=== PATIENT | female | born 1945 | race Caucasian/White ===

== ENCOUNTER 2020-10-13 09:26 | Outpatient (CLI) | payer MEDICARE, OTHER, SELFPAY ==
--- NOTE | 2020-10-13 09:41 | MR_ITS ---
WS: [id number] MRI LUMBAR SPINE NONCONTRAST HISTORY: SCIATICA/ HERNIATED LUMBAR DISC COMPARISON: 05/18/2017 TECHNIQUE: Sagittal and axial multisequence imaging is submitted. Degenerative disc disease and osteophytosis in the cervical spine with mild central stenosis at C5-6. Mild increase in the thoracic kyphosis. Increased in the lumbar lordosis. L2 retrolisthesis by 7.6 mm is new. Prior posterior fusion hardware extends from L4 to S1. Advancing degenerative disc disease since the prior study. Interbody spacers at L4-5 and L5-S1. Conus terminates normally at L1. L1-L2: Normal. L2-L3: L2 retrolisthesis with advancing facet joint arthritis. Extruded disc extends caudad to L3. Ex truded disc extends central and RIGHT lateral recess with a width of 11 mm. There is contact and defo rmity the ventral thecal sac and the nerve roots in the thecal sac. Marked bilateral facet joint arth ritis. Severe central and LEFT foraminal stenosis. Moderate RIGHT foraminal stenosis. L3-L4: Mild annular disc bulging and osteophytic ridging. Bilateral laminectomy defects. Facet joint arthritis and ligamentum flavum arthritis with mild progression since the prior study. Mild bilateral foraminal stenosis. Mild arachnoiditis. L4-L5: Large posterior laminectomy defects with fusion across the posterior laminectomy site. Clumpin g of the nerve roots in the thecal sac. No stenosis. L5-S1: Large posterior laminectomy defects with fusion posteriorly. Mild facet joint arthritis. Mild RIGHT foraminal stenosis due to facet arthritis and osteophytes. RIGHT renal cyst measures 2.6 cm. Aneurysmal dilatation of aorta 3.3 cm. Very slightly increased in s ize since the prior study. Moderate LEFT renal atrophy. MR/MR lumbar spine wo con* [id number] IMPRESSION: 1. Moderate progression of degenerative disc disease and facet joint arthritis since 05/18/2017. 2. Posterior lumbar fusion from L4 to S1 bilaterally with interbody spacers at L4-5 and L5-S1. 3. New L2 retrolisthesis by 7.6 mm with a new extruded disc at L2-3. Disc exte nds caudad to the L3 vertebral body. 4. New progression of severe central, LEFT foraminal stenosis and moderate RIG HT foraminal stenosis at L2-3. Extruded disc is contacting the RIGHT lateral th ecal sac extending into the lateral recess deforming the thecal sac. 5. Mild bilateral foraminal stenosis at L3-4 and mild arachnoiditis. 6. Stable moderate LEFT renal atrophy. 7. Mild aneurysmal dilatation abdominal aorta 3.3 cm. Minimal progression sinc e the prior study.
== END 2020-10-13 09:27 | disposition home or self-care (01) ==
PROVIDERS: Visit Provider Family Medicine
DX: M54.30 Sciatica, unspecified side (principal); M51.26 Other intervertebral disc displacement, lumbar region; I71.4 Abdominal aortic aneurysm, without rupture; N26.1 Atrophy of kidney (terminal); M43.27 Fusion of spine, lumbosacral region; M51.36 Other intervertebral disc degeneration, lumbar region
CPT/HCPCS: 72148

== ENCOUNTER → 2021-12-21 13:07 | Outpatient (BNVA) | payer OTHER, MEDICARE, SELFPAY | PROVIDERS: PCP Family Medicine; Visit Provider Family Medicine | DX: M54.9 Dorsalgia, unspecified (principal); G89.29 Other chronic pain; F32.A Depression, unspecified; E78.5 Hyperlipidemia, unspecified; I10 Essential (primary) hypertension | CPT/HCPCS: 80053; 80061; 84443 ==

== ENCOUNTER → 2022-09-07 10:54 | Outpatient (BNVA) | payer MEDICARE, SELFPAY | PROVIDERS: PCP Family Medicine; Visit Provider Family Medicine | DX: F32.A Depression, unspecified (principal); E78.5 Hyperlipidemia, unspecified; I10 Essential (primary) hypertension; G47.00 Insomnia, unspecified | CPT/HCPCS: 80053; 80061; 84443 ==

== ENCOUNTER → 2023-11-09 10:20 | Outpatient (BNVA) | payer MEDICARE, SELFPAY | PROVIDERS: PCP Family Medicine; Visit Provider Family Medicine | DX: I10 Essential (primary) hypertension (principal); E78.5 Hyperlipidemia, unspecified; F32.A Depression, unspecified; M54.9 Dorsalgia, unspecified; G89.29 Other chronic pain; E11.9 Type 2 diabetes mellitus without complications | CPT/HCPCS: 80053; 80061; 84443 ==

== ENCOUNTER → 2023-11-21 16:29 | Outpatient (BNVA) | payer MEDICARE, SELFPAY | PROVIDERS: PCP Family Medicine; Visit Provider Family Medicine | DX: J06.9 Acute upper respiratory infection, unspecified (principal) | CPT/HCPCS: 87426 ==

== ENCOUNTER 2024-03-01 12:17 | Inpatient (IN) | payer MEDICARE, SELFPAY ==
[2024-03-01] VITALS (11 sets, daily range): BP systolic 78–198; BP diastolic 40–86; PULSE 63–120; RESP 18–34; TEMP 36.5–36.9; O2SAT 91–98; BMI 25.6
--- NOTE | 2024-03-01 12:28 | XR_ITS ---
WS: [id number] Portable AP upright chest, 03/01/2024 Clinical Data: palpitations Comparison: Portable chest, 05/07/2018 Findings: No nodules, masses or effusions are seen. The heart is normal. The pulmonary vascularity is not increased. No pneumonia or pneumothorax is seen. The left cardiophrenic fat pad or cyst has not changed. The aortic arch and descending thoracic aorta show calcification and tortuosity. There are m onitor leads on the chest wall. XR/XR chest 1V portable [id number] Impression: Atherosclerosis.
--- NOTE | 2024-03-01 12:39 | ECG_ITS ---
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 Measurements Intervals [place] Rate: 120 P: 0 ME: 0 QRS: -5 QRSD: 96 T: 107 QT: 370 QTc: 524 Interpretive Statements Atrial fibrillation with RAPID VENTRICULAR RESPONSE LEFT VENTRICULAR HYPERTROPHY AND ST-T CHANGE [VOLTAGE CRITERIA PLUS ST/T ABNORMALITY] Compared to ECG 05/07/2018 19:58:35 Left ventricular hypertrophy now present ST (T wave) deviation now present Sinus rhythm no longer present First degree AV block no longer present Electronically Signed On 03-01-2024 18:14:49 DEPOSITING MACHINE OPERATOR by Fady Lozada M.D. [id number]
--- NOTE | 2024-03-01 12:41 | ED_ITS ---
HPI - Weakness 2 General: Chief complaint: Weakness Stated complaint: weakness Time Seen by Provider: 03/01/24 12:32 Source: patient Mode of arrival: ambulatory Limitations: no limitations History of Present Illness: 78-year-old female states that she was o ut shopping and started to feel weak and having some foggy headedness. States this started roughly 2 hours ago she denies any slurred speech or focal weakness she states she did felt lightheaded and extremely weak she had went to her PCPs office found to be in atrial flutter and having some hypotension patient is in what appears to likely be A-fib with RVR here. She denies any chest pain and she denies any shortness of breath denies headache. Denies any vomiting or diarrhea Associated symptoms: Denies chest pain, chills, fever(s), headache(s), nausea or vomiting Review of Systems 2 Const: Reports: fatigue and malaise; Denies: fever(s), chills, body aches or change in appetite ENMT: Denies: throat pain or dental pain Card: Denies: chest pain Resp: Denies: dyspnea GI: Denies: abdominal pain, nausea, vomiting or diarrhea Musc: Denies: neck pain or back pain Skin/Breast: Denies: rash Neuro: Denies: headache(s) PFSH ED 2 PFSH: Medical History Insomnia Chronic back pain Depression Hyperlipidemia Hypertension Social History Smoking and tobacco/nicotine status: unknown if used tobacco/nicotine Physical Exam 2 Const: COMMON NORMALS: patient oriented x3 HENMT: COMMON NORMALS: normocephalic and atraumatic HEAD & SCALP: n ormocephalic and atraumatic Eye: COMMON NORMALS: conjunctivae normal CONJUNCTIVA: Yes conjunctivae normal Neck/C-Spine: COMMON NORMALS: full ROM and supple Chest: COMMONS NORMALS: normal inspection of the chest Resp: COMMON NORMALS: normal respiratory effort, No retractions, No use of accessory muscles and clear to auscultation bilaterally AUSCULTATION: clear to auscultation bilaterally Cardio: COMMON NORMALS: No murmurs present (Cardio) RATE: tachycardic R HYTHM: abnormal rhythm irregularly irregular GI: INSPECTION: Yes normal to inspection Extremity: COMMON NORMALS: normal to inspection and full ROM Neuro: COMMON NORMALS: patient oriented x3, moves all extremities and no focal motor deficits Psych: COMMON NORMALS: mental status grossly normal, Normal thought process present and cooperative THOUGHT PROCESS: Normal thought process present Skin: COMMON NORMALS: no rashes or lesions noted and no wounds GENERAL SKIN EXAM: no rashes or lesions noted Course 2 Vital Signs: Vital signs: Vital Signs Temperature 97.7 F 03/01/24 12:25 Pulse Rate 112 H 03/01/24 12:59 Respiratory Rate 18 03/01/24 12:25 Blood Pressure 99/58 03/01/24 12:59 Pulse Oximetry 91 03/01/24 12:59 Oxygen Delivery Me thod Room Air 03/01/24 12:59 MDM - Weakness Medical Decision Making Patient presents here with atrial fib patient spontaneously converted here she feels much improved blood pressures improved as well I spoke to hospitalist will admit for observation. Medical Records I reviewed the patient's medical records. Lab Data I reviewed the patient's lab results. 03/01/24 13:00 03/01/24 13:00 Radiology Impressions Chest X-Ray 03/01/24 12:28 Impression: Atherosclerosis. Laboratory Results WBC 13.97 10^3/uL (3.29-11.43) H 03/01/24 13:00 RBC 3.38 10^6/uL (3.85-5.65) L 03/01/24 13:00 Hgb 11.00 g/dL (11.27-16.99) L 03/01/24 13:00 Hct 33.6 % (36-47) L 03/01/24 13:00 MCV 99.4 fl (85-98) H 03/01/24 13:00 MCH 32.5 pg (27-33) 03/01/24 13:00 MCHC 32.7 g/dL (30-55) 03/01/24 13:00 RDW 13.3 % (12.1-15.1) 03/01/24 13:00 Plt Count 357 10^3/cmm (157-399) 03/01/24 13:00 MPV 8.6 fL (7.4-10.4) 03/01/24 13:00 Neut % (Auto) 77.2 % 03/01/24 13:00 Lymph % (Auto) 14.7 % 03/01/24 13:00 [place] % (Auto) 5.3 % 03/01/24 13:00 Eos % (Auto) 1.1 % 03/01/24 13:00 Baso % (Auto) 0.5 % 03/01/24 13:00 Neut # (Auto) 10.78 10^3/uL (1.8-7.7) H 03/01/24 13:00 Lymph # (Auto) 2.1 10^3/uL (0.8-4.8) 03/01/24 13:00 [place] # (Auto) 0.7 10^3/uL (0.2-0.9) 03/01/24 13:00 Eos # (Auto) 0.2 10^3/uL (0.0-0.8) 03/01/24 13:00 Baso # (Auto) 0.1 10^3/uL (0.0-0.1) 03/01/24 13:00 Nucleated RBC % (auto) 0 % 03/01/24 13:00 Nucleated RBCs # 0.0 /100WBC 03/01/24 13:00 PT 14.90 SECONDS (12.1-14.9) 03/01/24 13:00 INR 1.09 (0.8-1.2) 03/01/24 13:00 Sodium 137 mmol/L (136-145) 03/01/24 13:00 Potassium 3.4 mmol/L (3.5-5.1) L 03/01/24 13:00 Chloride 100 mmol/L (98-107) 03/01/24 13:00 Carbon Dioxide 21 mmol/L (22-29) L 03/01/24 13:00 Anion Gap 19.4 (5-19) H 03/01/24 13:00 BUN 16 mg/dL (8-23) 03/01/24 13:00 Creatinine 1.4 mg/dL (0.5-0.9) H 03/01/24 13:00 GFR Calculation Not Reportable 03/01/24 13:00 Glucose 175 mg/dL (65-115) H 03/01/24 13:00 Calculated Osmolality 289 mOsm/kg (285-295) 03/01/24 13:00 Calcium 8.5 mg/dL (8.5-10.5) 03/01/24 13:00 Total Bilirubin 0.2 mg/dL (0.15-1.2) 03/01/24 13:00 AST 19 U/L (0-32) 03/01/24 13:00 ALT 56 U/L (0-33) H 03/01/24 13:00 Alkaline Phosphatase 141 U/L (35-105) H 03/01/24 13:00 Troponin T Baseline 54 ng/L (0-10) H 03/01/24 13:00 Total Protein 5.2 g/dL (6.6-8.7) L 03/01/24 13:00 Albumin 3.0 g/dL (3.5-5.2) L 03/01/24 13:00 Globulin 2.2 g/dL (1.3-4.6) 03/01/24 13:00 TSH 0.54 uIU/mL (0.27-4.20) 03/01/24 13:00 All radiology interpretation(s) finalized by discharge EKG Data EKG 1: I personally reviewed and interpreted this EKG as follows: EKG interpretation date: 03/01/24 EKG interpretation time: 12:39 Interpretation: afib rvr hr [address] elevation qrs 96 qtc 441 Discharge Plan Discharge Patient Disposition: Placed in Observation Clinical Impression: Atrial fibrillation Condition: Stable Prescriptions: No Action atorvastatin 10 mg tablet 10 mg PO DAILY Qty: 90 11RF losartan 100 mg tablet 100 mg PO DAILY Qty: 90 3RF gabapentin 100 mg capsule 100 mg PO TID Qty: 30 3RF clonazepam 1 mg tablet 1 mg PO BID Qty: 60 5RF ibuprofen 800 mg tablet 800 mg PO TID PRN (Reason: Pain) amitriptyline 25 mg tablet 75 mg PO QPM PRN (Reason: Sleep) Referrals: Syed Nesbitt MD [Primary Care Provider] - Coding Level of Care Code ED Plumbing Contractor for Chg Fwd Related Data Home Medications Medication Instructions Recorded Confirmed amitriptyline 25 mg tablet 75 mg PO QPM PRN Sleep 03/01/24 03/01/24 ibuprofen 800 mg tablet 800 mg PO TID PRN Pain 03/01/24 03/01/24 Previous Rx's Medication Instructions Recorded clonazepam 1 mg tablet 1 mg PO BID #60 tabs 11/09/23 atorvastatin 10 mg tablet 10 mg PO DAILY #90 tabs 02/20/24 gabapentin 100 mg capsule 100 mg PO TID #30 caps 02/20/24 losartan 100 mg tablet 100 mg PO DAILY #90 tabs 02/20/24 Allergies Allergy/AdvReac Type Severity Reaction Status Date / Time codeine Allergy Severe Unknown Verified 11/09/23 09:53 sulfamethoxazole Allergy Severe Unknown Verified 11/09/23 09:53 [From Bactrim] trimethoprim [From Bactrim] Allergy Severe Unknown Verified 11/09/23 09:53 carvedilol [From Coreg] Allergy Intermediate bradycardia Verified 11/09/23 09:53 escitalopram [From Lexapro] Allergy Intermediate headaches Verified 11/09/23 09:53 methylphenidate Allergy Mild side Verified 11/09/23 09:53 [From Ritalin] effects trazodone AdvReac Severe confusion Verified 11/09/23 09:53 atorvastatin AdvReac Intermediate myalgias Verified 11/09/23 09:53 cyclobenzaprine AdvReac Intermediate hallucinati Verified 11/09/23 09:53 [From Flexeril] ons levofloxacin [From Levaquin] AdvReac Intermediate hands felt Verified 11/09/23 09:53 on fire
--- NOTE | 2024-03-01 12:41 | CT_ITS ---
WS: [id number] CT HEAD NONCONTRAST HISTORY: weakness TECHNIQUE: Contiguous axial imaging performed through the brain. Bone and soft tissue windows. Sagitt al and coronal reformats reviewed. All CT scans at [facility] use at least one of these dose optimization techniques: automated exposure control; mA and/or kV adjustment per patient size (includ es targeted exams where dose is matched to clinical indication); or iterative reconstruction. DLP: 1082.60 mGy.cm COMPARISON: 05/07/2018 No acute intracranial hemorrhage, midline shift or mass effect. Mild atrophy and small vessel disease. No prior infarct. There are several small lacunar infarcts in the basal ganglia, greater on the LEFT. 1.4 cm calcified meningioma LEFT frontal region. Ventricles: Normal size with no hydrocephalus. Calcifications in the distal vertebral arteries and intracranial carotid arteries. Paranasal sinuses: As visualized are clear. Mastoid air cells: Well pneumatized. Calvarium and scalp: Skull is intact with no soft tissue edema or swelling. CT/CT head wo con* [id number] IMPRESSION: 1. No acute intracranial hemorrhage. 2. Stable noncontrast head CT. 3. Stable RIGHT frontal meningioma. 4. Mild atrophy and mild small vessel disease.
[2024-03-01] MEDS: amiodarone 150 MG/100 ML PREMIX 400 MG IV (12:57)
[2024-03-01 13:13] LABS: Basophils # 0.1 10^3/uL (0.0-0.1); Basophils % 0.5 %; Eosinophils # 0.2 10^3/uL (0.0-0.8); Eosinophils % 1.1 %; Hematocrit 33.6 % (36-47); Lymphocytes # 2.1 10^3/uL (0.8-4.8); Lymphocytes % 14.7 %; Mean Corpuscular HGB Conc 32.7 g/dL (30-55); Mean Corpuscular Hemoglobin 32.5 pg (27-33); Mean Corpuscular Volume 99.4 fl (85-98); Mean Platelet Volume 8.6 fL (7.4-10.4); Monocytes # 0.7 10^3/uL (0.2-0.9); Monocytes % 5.3 %; Neutrophils # 10.78 10^3/uL (1.8-7.7); Neutrophils % 77.2 %; Nucleated Red Blood Cells % 0 %; Platelet Count 357 10^3/cmm (157-399); Red Blood Count 3.38 10^6/uL (3.85-5.65); Red Cell Distribution Width 13.3 % (12.1-15.1); White Blood Count 13.97 10^3/uL (3.29-11.43)
--- NOTE | 2024-03-01 13:24 | ECG_ITS ---
[facility] Date: 2024[facility]01 Pat Name: Joycelyn Holden Department: Room: Gender: Female Manager Erp: : 1945 Requested By: Aranza Bonner Order Number: [id number] Sejal MD: Fady Lozada M.D. Measurements Intervals [place] Rate: 67 P: 48 MD: 193 QRS: 5 QRSD: 102 T: 85 QT: 418 QTc: 444 Interpretive Statements SINUS RHYTHM LEFT VENTRICULAR HYPERTROPHY AND ST-T CHANGE [VOLTAGE CRITERIA PLUS ST/T ABNORMALITY] POSSIBLE ANTERIOR MYOCARDIAL INFARCTION , OF INDETERMINATE AGE [30 ms Q WAVE IN V3/V4, OR R < 0.2 mV IN V4] Compared to ECG 03/01/2024 12:39:27 Myocardial infarct finding now present Atrial flutter no longer present ST (T wave) deviation still present Electronically Signed On 03-01-2024 18:23:20 STOCK SHIPPER by Fady Lozada M.D. [id number]
[2024-03-01 13:25] LABS: INR 1.09 (0.8-1.2)
[2024-03-01 13:29] LABS: Troponin(5th) Baseline 54 ng/L (0-10)
[2024-03-01 13:35] LABS: Alanine Aminotransferase 56 U/L (0-33); Alkaline Phosphatase 141 U/L (35-105); Anion Gap 19.4 (5-19); Aspartate Amino Transferase 19 U/L (0-32); Blood Urea Nitrogen 16 mg/dL (8-23); Calcium 8.5 mg/dL (8.5-10.5); Carbon Dioxide 21 mmol/L (22-29); Chloride 100 mmol/L (98-107); Creatinine Clr Calc Pharmacy 28.9961; Globulin 2.2 g/dL (1.3-4.6); Glucose 175 mg/dL (65-115); Osmolality Calculated 289 mOsm/kg (285-295); Potassium 3.4 mmol/L (3.5-5.1); Sodium 137 mmol/L (136-145); Total Bilirubin 0.2 mg/dL (0.15-1.2); Total Protein 5.2 g/dL (6.6-8.7)
--- NOTE | 2024-03-01 13:37 | PC.PHAR ---
Pt verified all current medications Most meds should be out, according to last fill dates. Gabapentin 100mg is most recently filled med form 02/20/24. Family member in the room says pt had problems taking this med in the past.
[2024-03-01 13:40] LABS: Thyroid Stimulating Hormone 0.54 uIU/mL (0.27-4.20)
--- NOTE | 2024-03-01 13:58 | PC.NURSE ---
AT APPROXIMATELY 1309 I WAS STARTING A 2ND IV ON PATIENT WHEN SHE STARTED SAYING SHE WAS NAUSEOUS. PATIENT WAS SPEAKING CLEARLY I WAS TIGHTENING JLOOP TO THE IV HUB. PATIENTS HEAD FELL BACKWARD AND SHE LET OUT A MOAN. PATIENT DID NOT RESPOND TO VERBAL STIMULI AND WAS IN ASYSTOLE ON TELECOMMUNICATIONS REPAIRER FOR APPROX 5 SECONDS. WHEN ASYSTOLE FIRST APPEARED, I IMMEDIATELY STOPPED AMIODARONE ON PUMP. I REPEATED THE PATIENTS NAME AND SHE IMMEDIATELY RESPONDED VERBALLY AND OPENED EYES. PATIENT SHOWED NORMAL SINUS RHYTHM ON MONITOR AT THAT TIME. PATIENT WAS ALERT AND ORIENTED. SHORTLY AFTER PATIENT RESPONDED, PHYSICIAN WALKED INTO ROOM TO ASSESS PATIENT. REPEAT EKG PERFORMED AND SHOWED NORMAL SINUS RHYTHM. 10 MINS LATER ANOTHER REPEAT EKG SHOWED NORMAL SINUS RHYTHM AT A RATE OF 66. PATIENT WAS A&OX4 WITH EQUAL NONLABORED RESPIRATIONS AT THIS TIME. DR. SILVA GAVE VERBAL ORDER TO D/C AMIODARONE. PULLED BACK ON PATIENT'S IV THAT CONTAINED AMIODARONE AND DISPOSED OF WASTE.
--- NOTE | 2024-03-01 14:28 | ECG_ITS ---
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 Measurements Intervals [place] Rate: 62 P: 34 FL: 193 QRS: -13 QRSD: 95 T: 105 QT: 415 QTc: 424 Interpretive Statements SINUS RHYTHM POSSIBLE LEFT ATRIAL ENLARGEMENT [-0.1mV P-WAVE IN V1/V2] LEFT VENTRICULAR HYPERTROPHY AND ST-T CHANGE [VOLTAGE CRITERIA PLUS ST/T ABNORMALITY] POSSIBLE ANTERIOR MYOCARDIAL INFARCTION , OF INDETERMINATE AGE [30 ms Q WAVE IN V3/V4, OR R < 0.2 mV IN V4] Compared to ECG 03/01/2024 12:39:27 Myocardial infarct finding now present Atrial flutter no longer present ST (T wave) deviation still present Electronically Signed On 03-01-2024 18:23:27 PERSONAL CARE HOME ADMINISTRATOR by Fady Lozada M.D. [id number]
[2024-03-01 15:49] LABS: Procalcitonin 0.13 ng/mL (0-0.5)
--- NOTE | 2024-03-01 15:59 | USCV_ITS ---
Joycelyn Holden Age: 78 Gender: F : 1945 Exam Date: 03/01/2024 16:41 Ordering Phys: Phillip Hester MD Technologist: [place] [facility] [place] afib BP: 137 / 90 HR: 65 Rhythm: Sinus Technical Quality: Adequate MEASUREMENTS (Male / Female) Normal Values 2D ECHO LVOT Diameter 2.0 cm LV Ejection Fraction MOD 4C 58.3 % LV Ejection Fraction MOD 2C 64.4 % LV Ejection Fraction 2C AL 64.5 % LA Diameter 3.6 cm RA Systolic Volume 4C AL 30.3 ml RA Systolic Volume 4C MOD 29.1 ml LA Sys Volume AL 65.2 cm cubed LA Sys Volume Index AL 38.8 cm cubed/m squared Aorta at Sinotubular Diameter 1.8 cm IVC Diameter 2.4 cm M-MODE LA Ao Ratio MM 1.4 AV Cusp Separation MM 1.9 cm DOPPLER AV Peak Velocity 175.0 cm/s LVOT Peak Velocity 83.0 cm/s AV Area Cont Eq vti 1.7 cm squared AV Area Cont Eq pk 1.5 cm squared MV Peak Velocity 124.0 cm/s MV Area PHT 4.5 cm squared Mitral E to A Ratio 2.0 TV Peak Velocity 302.5 cm/s TR Peak Velocity 311.5 cm/s TR Peak Gradient 38.8 mmHg TR Mean Velocity 212.0 cm/s TR Mean Gradient 21.2 mmHg TR Velocity Time Integral 77.6 cm TV Peak E Velocity 56.0 cm/s PV Peak Velocity 93.0 cm/s FINDINGS Left Ventricle Normal left ventricular size and systolic function, EF 64%. Moderate left ventricular hypertrophy. No regional wall motion abnormalities. Grade III/IV diastolic dysfunction (restrictive filling pattern), severely elevated filling pressures. Right Ventricle The right ventricle is normal in size and function. Right Atrium The right atrium is normal in size. Left Atrium Mildly increased left atrial size. Mitral Valve Thickened mitral valve. Mild mitral annular calcification. Aortic Valve Thickened aortic valve. Tricuspid Valve Structurally normal tricuspid valve without significant stenosis or regurgitation. Pulmonary artery systolic pressure is normal. Pulmonic Valve Mild to moderate pulmonary valve regurgitation. Pericardium Trivial pericardial effusion. Aorta Normal aortic annulus size. IVC Normal inferior vena cava. CONCLUSIONS Normal left ventricular size and systolic function, EF 64%. Moderate left ventricular hypertrophy. No regional wall motion abnormalities. Grade III/IV diastolic dysfunction (restrictive filling pattern), severely elevated filling pressures. Mildly increased left atrial size. Thickened mitral valve. Mild mitral annular calcification. Thickened aortic valve. Structurally normal tricuspid valve without significant stenosis or regurgitation. Pulmonary artery systolic pressure is normal. Mild to moderate pulmonary valve regurgitation. There are no intracardiac masses. Trivial pericardial effusion. Compared to the study from 06/24/2016, there is worsening of the diastolic dysfunction Dr Fady Lozada MD FAC (Electronically Signed) Final Date: 01 March 2024 19:32 S
[2024-03-01 16:15] LABS: Troponin 5 2HR 63.53 ng/L (0-10); Troponin 5 2HR Delta 9.53 ABS# (0-10)
[2024-03-01 17:03] LABS: Iron 23 ug/dL (37-145); Percent Saturation 14.1 % (20-50); Total Iron Binding Capacity 162 mcg/dl; Unsaturated Iron Binding 139 ug/dL (112-347); Vitamin B12 878 pg/mL (232-1245)
--- NOTE | 2024-03-01 17:15 | P.HP_ITS ---
Providers/Chief Complaint 2 Admitting Physician: Phillip Hester MD Primary Care Provider: Syed Nesbitt MD Chief Complaint: weakness History of Present Illness Joycelyn Holden is a 78 year old female with past medical history of hypertension, depression, insomnia, hyperlipidemia presents to the ER today from the PCPs office because of atrial fibrillation. For the patient he was at [employer] with a friend when she felt extremely weak and decided to go to the PCPs office where she was found to have atrial fibrillation. On presentation to the ER she was found to have heart rate of more than 150, atrial fibrillation with concerns for hypotension. She was started on amiodarone bolus along with IV fluid bolus. During the bolus while a second IV line was being placed she seemed to have a vagal episode after which she converted back into sinus rhythm. When she was in A-fib she was feeling weak, having difficulty in breathing with some chest heaviness. Right now when seen in [facility], patient is in sinus rhythm with a heart rate of mid 60s, daughter at bedside. She denies any active complaints. Denies any recent changes in medications other than being on oral prednisone and valacyclovir recently for possible sinus infection and cold sore around her lips. Review of Systems 2 General: Reports: 10 or more systems reviewed and unremarkable except in HPI and below Const: Denies: fever(s), chills, body aches, change in appetite, change in weight, malaise, night sweats, diaphoresis, change in sleep pattern, daytime sleepiness or snoring Eyes: Denies: change in vision, blurry vision, photophobia, eye discomfort or eye discharge ENMT: Denies: throat pain, enlarged tonsils, hoarseness, mouth pain, oral sores, dry mouth, tinnitus, nasal congestion or post nasal drip Card: Denies: chest pain, palpitations, irregular heart rhythm, edema, swelling of feet/ankles, lightheadedness, syncope, pre-syncope, dyspnea on exertion, orthopnea, leg pain with exertion or acrocyanosis Resp: Denies: dyspnea, productive cough, non-productive cough, wheezing, stridor, pain on inspiration, change in phlegm color, hemoptysis or chest congestion GI: Denies: abdominal pain, nausea, vomiting, hematemesis, coffee ground emesis, dysphagia, heartburn, diarrhea, constipation, bloating, GI cramping, change in bowel habits, pain on defecation, hematochezia or melena : Denies: flank pain, dysuria, urinary frequency, urinary urgency, urinary hesitancy, nocturia or hematuria Musc: Denies: neck pain, back pain, extremity pain, joint pain, joint swelling, joint redness, joint stiffness or limited range of motion Neuro: Denies: headache(s), numbness in extremities, weakness in extremities, sensory changes, lack of coordination, difficulty walking, frequent falls, dizziness, vertigo, confusion, Slurred speech present, difficulty communicating thoughts or seizure-like activity Psych: Denies: anxiety, depression, mood swings, panic attacks, hopelessness or irritability Endo: Denies: polyuria, polydipsia, tired all the time, cold intolerance, excessive sweating, flushing or heat intolerance Sven/Lymph: Denies: easy bruising or easy bleeding All/Imm: Denies: tongue swelling, facial swelling or acute wheezing Medications/Allergies Home Medications Medication Instructions Recorded Confirmed Last Taken Type clonazepam 1 mg tablet 1 mg PO BID #60 tabs 11/09/23 03/01/24 03/01/24 Rx atorvastatin 10 mg tablet 10 mg PO DAILY #90 tabs 02/20/24 03/01/24 03/01/24 Rx gabapentin 100 mg capsule 100 mg PO TID #30 caps 02/20/24 03/01/24 02/29/24 Rx losartan 100 mg tablet 100 mg PO DAILY #90 tabs 02/20/24 03/01/24 03/01/24 Rx amitriptyline 25 mg tablet 75 mg PO QPM PRN Sleep 03/01/24 03/01/24 02/29/24 History ibuprofen 800 mg tablet 800 mg PO TID PRN Pain 03/01/24 03/01/24 Unknown History Allergies Allergy/AdvReac Type Severity Reaction Status Date / Time codeine Allergy Severe Unknown Verified 11/09/23 09:53 sulfamethoxazole Allergy Severe Unknown Verified 11/09/23 09:53 [From Bactrim] trimethoprim [From Bactrim] Allergy Severe Unknown Verified 11/09/23 09:53 carvedilol [From Coreg] Allergy Intermediate bradycardia Verified 11/09/23 09:53 escitalopram [From Lexapro] Allergy Intermediate headaches Verified 11/09/23 09:53 methylphenidate Allergy Mild side Verified 11/09/23 09:53 [From Ritalin] effects trazodone AdvReac Severe confusion Verified 11/09/23 09:53 atorvastatin AdvReac Intermediate myalgias Verified 11/09/23 09:53 cyclobenzaprine AdvReac Intermediate hallucinati Verified 11/09/23 09:53 [From Flexeril] ons levofloxacin [From Levaquin] AdvReac Intermediate hands felt Verified 11/09/23 09:53 on fire PFSH Acute 2 PFSH: Medical History Insomnia Chronic back pain Depression Hyperlipidemia Hypertension Family History (Updated 03/01/24 @ 17:26 by Phillip Hester MD) Other CAD (coronary artery disease) Social History (Updated 03/01/24 @ 17:26 by Phillip Hester MD) Smoking and tobacco/nicotine status: current every day tobacco/nicotine user Alcohol intake: never Substance/Drug Use: never Caregiver/support person: Yes Lives independently: Yes Housing: House Current occupational status: retired Vitals/I&O/Wt Last Vital Signs Temp 97.7 F 03/01/24 12:25 Pulse 69 03/01/24 16:16 Resp 18 03/01/24 12:25 BP 181/86 03/01/24 16:16 Pulse Ox 95 03/01/24 16:16 O2 Del Method Room Air 03/01/24 16:49 03/01/24 03/01/24 03/01/24 06:59 14:59 22:59 Intake Total 86.667 / 86.667 0 / 86.667 Balance 86.667 / 86.667 0 / 86.667 Weight last 48 hrs Weight 73.573 kg Weight 63.503 kg Physical Exam 2 Narrative: General: No acute distress, AO x3 HEENT: PERRLA, pupils bilaterally equal and reactive Chest: Normal vesicular breath sounds, no added sounds, equal good air entry bilaterally CVS: S1-S2 regular, no murmurs, no tachycardia, no gallops, no rubs Abdomen: Soft, nontender, no organomegaly, bowel sounds present Neuro: No focal deficits, no facial deformity, AO x3, power 5/5 in all limbs Data 03/01/24 13:00 03/01/24 13:00 A&P Assessment and plan (1) Paroxysmal atrial fibrillation with RVR: Back in normal sinus rhythm now. Continue to monitor telemetry. TSH within normal limits. Check echocardiogram. Discussed in detail with the patient regarding possibility of need of anticoagulation for stroke prevention. Discussed about merits versus demerits of being on anticoagulation. Patient would like to think further before making a decision. Will follow-up with Joe Vas score after echocardiogram. (2) Elevated troponin: Baseline troponin delta elevated. Delta of 9 in 2 hours. Patient does have history of hypertension, is a chronic smoker, has family history of CAD. Check echocardiogram as above. Lexiscan stress test in AM. N.p.o. after midnight. Aspirin 325 mg one-time followed by 81 mg daily. Check A1c, lipid panel. Counseled patient detail regarding need for smoking cessation. (3) Hypertension: Goal blood pressure less than 140/90 mmHg. Continue with home dose of losartan. If needed with add amlodipine as per goal blood pressure. (4) Hypotension: Landry was in A-fib with RVR. Currently blood pressure stable. Continue to monitor. (5) Hyperlipidemia: Plan Full code Cardiac diet, n.p.o. after midnight Full dose Lovenox will be sufficient for DVT prophylaxis Famotidine for PUD prophylaxis Attestations 2 Medical Necessity Statement*: Requires admission under observation for management of paroxysmal A-fib with RVR, elevated troponin while CAD is ruled out Diagnoses Paroxysmal atrial fibrillation with RVR I48.0 Elevated troponin R79.89 Hypertension I10 Hypotension I95.9 Hyperlipidemia E78.5
--- NOTE | 2024-03-01 17:22 | ECG_ITS ---
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 Interpretive Statements Lung unchanged pre/post procedure; Intraprocedure shortess of breath; Symptoms resoled by discharge PROCEDURE: At the baseline, the EKG revealed normal sinus rhythm with a poor R wave progression. Nonspecific T wave changes in the high lateral leads.. The baseline heart was 70 bpm with a blood pressue of 161/99 mm of Hg Lexiscan was infused over a period of 20 seconds. A total of 0.4 milligrams of Lexiscan was infused. The stress phase was continued for a total of 5 minutes. Heart rate at the end of the stress phase was 79 bpm with a blood pressure 203/80 mm of Hg. The EKG at the peak infusion revealed no significant changes. Sestamibi was injected 20 seconds after the Lexiscan infusion. Heart rate at the end of the recovery phase was 77 bpm with a blood pressure of 180/78 mm of Hg. CONCLUSION: 1. No significant EKG changes with the LexiScan infusion 2. No LexiScan induced chest pain or cardiac arrhythmia 3. Normal blood pressure and heart rate response 4. Sestamibi/sestamibi perfusion scan pending; see separate report. Electronically Signed On 03-07-2024 21:16:15 [employer] by Fady Lozada M.D. [id number]
[2024-03-01] MEDS: potassium chloride ER 20 mEq Tablet 40 MEQ PO (17:31)
[2024-03-01] MEDS: famotidine 20 mg Tablet PO (17:31)
[2024-03-01] MEDS: aspirin 325 mg EC Tablet PO (17:31)
[2024-03-01] MEDS: CLONazepam 1 mg Tablet PO (17:31)
[2024-03-01] MEDS: enoxaparin 80 mg/0.8 mL Syringe 70 MG SUBCUT (17:31)
[2024-03-01 19:30] LABS: Troponin 5 6HR 66.85 ng/L (0-10)
[2024-03-01 19:32] LABS: Troponin 5 6HR Delta 12.85 ng/L (0-12)
[2024-03-01] MEDS: gabapentin 100 mg Capsule PO (20:22)
[2024-03-02] VITALS (16 sets, daily range): BP systolic 140–203; BP diastolic 58–92; PULSE 69–86; RESP 18–33; TEMP 36.5–37.2; O2SAT 89–98
[2024-03-02 02:46] LABS: Basophils # 0.1 10^3/uL (0.0-0.1); Basophils % 0.8 %; Eosinophils # 0.3 10^3/uL (0.0-0.8); Eosinophils % 2.1 %; Hematocrit 31.3 % (36-47); Lymphocytes # 3.1 10^3/uL (0.8-4.8); Lymphocytes % 26.2 %; Mean Corpuscular HGB Conc 32.6 g/dL (30-55); Mean Corpuscular Hemoglobin 32.5 pg (27-33); Mean Corpuscular Volume 99.7 fl (85-98); Mean Platelet Volume 8.8 fL (7.4-10.4); Neutrophils # 7.35 10^3/uL (1.8-7.7); Neutrophils % 61.3 %; Nucleated Red Blood Cells % 0 %; Platelet Count 330 10^3/cmm (157-399); Red Blood Count 3.14 10^6/uL (3.85-5.65); Red Cell Distribution Width 13.3 % (12.1-15.1); White Blood Count 11.98 10^3/uL (3.29-11.43)
[2024-03-02 03:08] LABS: Alanine Aminotransferase 46 U/L (0-33); Albumin Level 2.7 g/dL (3.5-5.2); Alkaline Phosphatase 135 U/L (35-105); Aspartate Amino Transferase 16 U/L (0-32); Blood Urea Nitrogen 15 mg/dL (8-23); Calcium 8.5 mg/dL (8.5-10.5); Carbon Dioxide 27 mmol/L (22-29); Chloride 103 mmol/L (98-107); Globulin 2.8 g/dL (1.3-4.6); Glucose 98 mg/dL (65-115); Magnesium 1.7 mg/dL (1.7-2.3); Osmolality Calculated 289 mOsm/kg (285-295); Phosphorus 3.5 mg/dL (2.5-4.5); Sodium 139 mmol/L (136-145); Total Bilirubin 0.2 mg/dL (0.15-1.2); Total Protein 5.5 g/dL (6.6-8.7)
[2024-03-02 03:10] LABS: Estmated Average Glucose 111; Hemoglobin A1C 5.5 % (4.0-6.0)
[2024-03-02 03:17] LABS: Procalcitonin 0.08 ng/mL (0-0.5)
[2024-03-02 03:21] LABS: Folate Level 13.6 ng/mL (4.8-37.3)
[2024-03-02 03:28] LABS: Chol HDL Ratio 4.36 mg/dL (0.0-4.40); Cholesterol 122 mg/dL (0-200); HDL Cholesterol 28 mg/dL (60-100); LDL Cholesterol Calculated 76 mg/dL (50-129); LDL HDL Ratio 2.71 RATIO (0.00-3.22); Triglycerides 92 mg/dL (0-150)
[2024-03-02] MEDS: enoxaparin 80 mg/0.8 mL Syringe 70 MG SUBCUT (05:16)
[2024-03-02] MEDS: regadenoson 0.4 Mg/5 ml Syringe IVP (07:15)
[2024-03-02 07:45] LABS: Bilirubin Urine Negative (Negative); Blood Urine Negative (Negative); Glucose Urine UA Negative (Normal); Ketones Urine Negative (Negative); Leukocyte Esterase Urine Negative (Negative); Nitrate Urine Negative (Negative); Protein Urine Negative (Negative); Urine Appearance Clear (CLEAR); Urine Color Yellow (Yellow); pH Urine 5.5 (5-7)
[2024-03-02 07:47] LABS: Add Urine Microscopic? YES; Bacteria Urine None Seen /hpf; Hyaline Casts Urine 4.11 /lpf; RBC Urine 0-2 /hpf (0-2); Squamous Epithelial Cell Urine 0-5 /hpf (0-5); WBC Urine 0-5 /hpf (0-5)
[2024-03-02] MEDS: losartan 50 mg Tablet 100 MG PO (08:57)
[2024-03-02] MEDS: amlodipine 10 mg Tablet PO (08:57)
[2024-03-02] MEDS: gabapentin 100 mg Capsule PO ×3 (08:58→20:01)
[2024-03-02] MEDS: CLONazepam 1 mg Tablet PO ×2 (08:58→17:06)
[2024-03-02] MEDS: aspirin 81 mg EC Tablet PO (08:58)
[2024-03-02] MEDS: famotidine 20 mg Tablet PO ×2 (08:58→17:05)
[2024-03-02] MEDS: atorvastatin 40 mg Tablet PO (08:58)
--- NOTE | 2024-03-02 09:55 | PC.NURSE ---
Patient's current BP 203/88. Dr Hester into see patient. Received verbal order for hydralazine 10mg IVP onetime now.
[2024-03-02] MEDS: hyDRALAzine 20 mg/mL INJ 1 mL 10 MG IVP ×2 (10:33→21:08)
[2024-03-02] MEDS: hyDRALAzine 25 mg Tablet PO ×2 (12:21→14:34)
--- NOTE | 2024-03-02 12:49 | P.PN_ITS ---
Subjective 2 Subjective: No acute events overnight. Had remained in normal sinus rhythm. Underwent cardiac stress test earlier in the morning today. Denies any nausea, vomiting, headache. Blood pressure slightly elevated. Vitals/I&O/Wt Last Vital Signs Temp 97.7 F 03/02/24 11:43 Pulse 75 03/02/24 11:43 Resp 23 H 03/02/24 11:43 BP 177/92 03/02/24 11:43 Pulse Ox 98 03/02/24 11:43 O2 Del Method Room Air 03/02/24 11:43 03/01/24 03/02/24 03/02/24 22:59 06:59 14:59 Intake Total 240 / 326.667 480 / 806.667 360 / 360 Output Total 1100 / 1100 Balance 240 / 326.667 -620 / -293.333 360 / 360 Weight last 48 hrs Weight 75.523 kg Weight 73.573 kg Weight 63.503 kg Physical Exam 2 Narrative: General: No acute distress, AO x3 HEENT: PERRLA, pupils bilaterally equal and reactive Chest: Normal vesicular breath sounds, no added sounds, equal good air entry bilaterally CVS: S1-S2 regular, no murmurs, no tachycardia, no gallops, no rubs Abdomen: Soft, nontender, no organomegaly, bowel sounds present Neuro: No focal deficits, no facial deformity, AO x3, power 5/5 in all limbs Data 03/02/24 02:33 03/02/24 02:33 A&P Assessment and plan (1) Paroxysmal atrial fibrillation with RVR: Back in normal sinus rhythm now. Continue to monitor telemetry. TSH within normal limits. Check echocardiogram. Discussed in detail with the patient regarding possibility of need of anticoagulation for stroke prevention. Discussed about merits versus demerits of being on anticoagulation. Again followed up with the patient regarding possible need for anticoagulation. She is agreeable and would want to be on anticoagulation for stroke prevention going forward. Will start on Eliquis 5 mg twice daily. (2) Elevated troponin: Denies any chest pain. Echocardiogram shows a normal EF without regional wall motion normality with grade 3 diastolic dysfunction, mild to moderate pulmonary valve regurgitation with a normal PASP. Appreciate cardiac stress test with the possibility of small area of reversibility in the basal inferior region. Discussed in detail with the patient. As patient does not have any active symptoms for now we will hold off any further workup. Will start patient on baby aspirin 81 mg daily. Appreciate A1c, lipid panel. Continue with atorvastatin 10 mg oral daily. Counseled patient detail regarding need for smoking cessation. (3) Hypertension: Goal blood pressure less than 140/90 mmHg. Blood pressure is elevated. Continue with home dose of losartan 100 mg oral daily, add amlodipine 10 mg oral daily. If needed will add hydralazine. IV Razan 10 mg every 6 hours as needed for systolic more than 160 mmHg. (4) Hypotension: Resolved. (5) Hyperlipidemia: (6) Positive cardiac stress test: Plan Full code Cardiac diet, Eliquis will be sufficient for DVT prophylaxis Famotidine for PUD prophylaxis Attestations 2 Medical Necessity Statement*: Requires further hospitalization for management of uncontrolled hypertension while antihypertensives are adjusted and patient initially admitted for A-fib with RVR, positive troponins with concern for positive stress test Diagnoses Paroxysmal atrial fibrillation with RVR I48.0 Elevated troponin R79.89 Hypertension I10 Hypotension I95.9 Hyperlipidemia E78.5 Positive cardiac stress test R94.39
--- NOTE | 2024-03-02 14:26 | PC.NURSE ---
took over pt care from RUPA Victoria.
--- NOTE | 2024-03-02 17:22 | NMCV_ITS ---
NM josemanuel perf SPECT r/s* [id number] Joycelyn Holden Age: 78 Gender: F : 1945 Exam Date: 03/02/2024 06:32 Ordering Phys: Phillip Hester MD Technologist: FREIDA Anglin Exam Location: [facility] Indications: CP STRESS TEST Please see separate stress test report in [facility] for full findings IMAGE PROTOCOL Rest/Stress 1 Lexiscan Day Radiopharmaceutical Dose (mCi) Administration Site Administered by Rest: Tc-99m 10.6 IV FREIDA Anglin Sestamibi Stress:Tc-99m 32.8 IV FREIDA Anglin Sestamibi Rest: 02-Mar-2024 60 Discovery 630 Stress: 02-Mar-2024 30 Discovery 630 0.4mg Lexiscan. Supine position only as patient was unable to lay prone. SPECT RESULTS Technical Quality: Good Raw Data Analysis: Normal Image Corrections: No attenuation or motion correction applied Summed Stress Score: 1 Summed Rest Score: 3 Summed Difference Score: 1 PERFUSION FINDINGS There was a small area of slightly decreased tracer uptake in the basal inferior wall region, with some reversibility FUNCTIONAL RESULTS (calculated via Gated SPECT) Stress Image LV EF (%): 66 Stress EDV (mL):87 TID: 0.96 Stress ESV (mL):30 FUNCTIONAL FINDINGS: Segmental wall motion analysis revealing no gross wall motion abnormalities IMPRESSIONS 1. Myocardial perfusion imaging revealing a small area of slight reversibility in the basal inferior wall region, suggestive of ischemia in the distribution of the right coronary artery (the summed difference score of 1) 2. Normal LV ejection fraction of 66%. 3. LV wall motion analysis revealing no gross wall motion abnormalities. 4. LV volume within normal limits No similar previous studies are available for comparison Dr Fady Lozada MD [facility] (Electronically Signed) Final Date: 02 March 2024 08:35 S
[2024-03-02] MEDS: apixaban 5 mg Tablet PO (20:01)
[2024-03-02] MEDS: hyDRALAzine 50 mg Tablet PO (20:01)
[2024-03-03] VITALS: BP 149/66
[2024-03-03 02:21] LABS: Basophils # 0.1 10^3/uL (0.0-0.1); Basophils % 0.4 %; Eosinophils # 0.2 10^3/uL (0.0-0.8); Eosinophils % 1.4 %; Hematocrit 33.8 % (36-47); Lymphocytes # 1.8 10^3/uL (0.8-4.8); Lymphocytes % 14.1 %; Mean Corpuscular HGB Conc 33.1 g/dL (30-55); Mean Corpuscular Hemoglobin 32.5 pg (27-33); Mean Platelet Volume 8.8 fL (7.4-10.4); Monocytes # 0.9 10^3/uL (0.2-0.9); Monocytes % 7.3 %; Neutrophils # 9.67 10^3/uL (1.8-7.7); Neutrophils % 75.5 %; Nucleated Red Blood Cells % 0 %; Platelet Count 379 10^3/cmm (157-399); Red Blood Count 3.45 10^6/uL (3.85-5.65); Red Cell Distribution Width 13.4 % (12.1-15.1)
[2024-03-03 02:47] LABS: Alanine Aminotransferase 37 U/L (0-33); Alkaline Phosphatase 142 U/L (35-105); Anion Gap 15.2 (5-19); Aspartate Amino Transferase 13 U/L (0-32); Blood Urea Nitrogen 15 mg/dL (8-23); Calcium 8.8 mg/dL (8.5-10.5); Carbon Dioxide 28 mmol/L (22-29); Chloride 102 mmol/L (98-107); Creatinine Clr Calc Pharmacy 40.1034; Globulin 2.8 g/dL (1.3-4.6); Glucose 135 mg/dL (65-115); Osmolality Calculated 295 mOsm/kg (285-295); Potassium 4.2 mmol/L (3.5-5.1); Sodium 141 mmol/L (136-145); Total Bilirubin 0.2 mg/dL (0.15-1.2); Total Protein 5.8 g/dL (6.6-8.7)
[2024-03-03 03:47] VITALS: BP 158/72; PULSE 82; RESP 20; TEMP 37.1; O2SAT 96
[2024-03-03 05:15] VITALS: PULSE 80
[2024-03-03 08:43] VITALS: BP 143/67
[2024-03-03] MEDS: apixaban 5 mg Tablet PO (08:43)
[2024-03-03] MEDS: gabapentin 100 mg Capsule PO (08:43)
[2024-03-03] MEDS: CLONazepam 1 mg Tablet PO (08:43)
[2024-03-03] MEDS: hyDRALAzine 50 mg Tablet PO (08:43)
[2024-03-03] MEDS: losartan 50 mg Tablet 100 MG PO (08:43)
[2024-03-03] MEDS: amlodipine 10 mg Tablet PO (08:43)
[2024-03-03] MEDS: aspirin 81 mg EC Tablet PO (08:44)
[2024-03-03] MEDS: atorvastatin 40 mg Tablet PO (08:44)
[2024-03-03] MEDS: famotidine 20 mg Tablet PO (08:44)
[2024-03-03 09:36] VITALS: BP 143/67; PULSE 73; RESP 17; TEMP 37.1; O2SAT 93
--- NOTE | 2024-03-03 09:47 | P.DS_ITS ---
Discharge Providers Date of Admission: 03/02/24 15:33 Date of Discharge: March 03, 2024 Attending Provider at Admission: Phillip Hester MD Attending Provider at Discharge: Phillip Hester MD Primary Care Provider: Syed Nesbitt MD Diagnoses at Discharge Discharge Diagnosis (1) Paroxysmal atrial fibrillation with RVR: Status: Acute (2) Elevated troponin: Status: Acute (3) Hypertension: Status: Acute (4) Hypotension: Status: Acute (5) Hyperlipidemia: Status: Acute (6) Positive cardiac stress test: Status: Acute Reason for Visit Reason for Visit: weakness Hospital Course Hospital Course Joycelyn Holden is a 78 year old female with past medical history of hypertension, depression, insomnia, hyperlipidemia presents to the ER today from the PCPs office because of atrial fibrillation. For the patient he was at [employer] with a friend when she felt extremely weak and decided to go to the PCPs office where she was found to have atrial fibrillation. On presentation to the ER she was found to have heart rate of more than 150, atrial fibrillation with concerns for hypotension. She was started on amiodarone bolus along with IV fluid bolus. During the bolus while a second IV line was being placed she seemed to have a vagal episode after which she converted back into sinus rhythm. When she was in A-fib she was feeling weak, having difficulty in breathing with some chest heaviness. Right now when seen in [facility], patient is in sinus rhythm with a heart rate of mid 60s, daughter at bedside. She denies any active complaints. Denies any recent changes in medications other than being on oral prednisone and valacyclovir recently for possible sinus infection and cold sore around her lips. Patient was admitted to the hospital further evaluation and management of paroxysmal A-fib with concerns for chest pressure. Her troponin cycle trended positive. She did not have any active chest pain. During hospitalization patient remained in normal sinus rhythm. She underwent Lexiscan stress test on 03/02 which was concerning for a possibility of slight reversibility in the basal inferior region. As patient did not have any active chest pain decision was made to follow-up as an outpatient with cardiology if and when needed. During hospitalization she was found to have elevated blood pressures for which her antihypertensives are adjusted. During hospitalization discussions were done regarding possible need of starting anticoagulation given concerns for paroxysmal A-fib. Merits versus demerits were discussed in detail with the patient and she verbalized understanding wants to start on anticoagulation. She was started on Eliquis 5 mg twice daily. Echocardiogram was done which showed a normal EF with grade 3 diastolic dysfunction and mild to moderate pulmonary valve regurgitation. She has been discharged in hemodynamically stable condition with advised to follow-up with primary team within next 2 weeks for further adjustment of antihypertensive as needed Physical Exam Narrative: General: No acute distress, AO x3 HEENT: PERRLA, pupils bilaterally equal and reactive Chest: Normal vesicular breath sounds, no added sounds, equal good air entry bilaterally CVS: S1-S2 regular, no murmurs, no tachycardia, no gallops, no rubs Abdomen: Soft, nontender, no organomegaly, bowel sounds present Neuro: No focal deficits, no facial deformity, AO x3, power 5/5 in all limbs Discharge Data Studies Completed and Pending Completed Studies During Hospitalization Category Date Time Status CT head wo con* [id number] Stat Cat Scan 03/01/24 12:41 Completed XR chest 1V portable [id number] Stat Exams 03/01/24 12:28 Completed NM josemanuel perf SPECT r/s* [id number] Routine Nuc Med 03/02/24 17:22 Completed CV. echo complete* [id number] Routine Ultrasound 03/01/24 15:59 Completed Pending at discharge Category Date Time Status Sestamibi Stress Test Request Routine Exams 03/01/24 17:22 Ordered Radiology Impressions Chest X-Ray 03/01/24 12:28 Impression: Atherosclerosis. Head CT 03/01/24 12:41 IMPRESSION: 1. No acute intracranial hemorrhage. 2. Stable noncontrast head CT. 3. Stable RIGHT frontal meningioma. 4. Mild atrophy and mild small vessel disease. Echocardiogram: CONCLUSIONS Normal left ventricular size and systolic function, EF 64%. Moderate left ventricular hypertrophy. No regional wall motion abnormalities. Grade III/IV diastolic dysfunction (restrictive filling pattern), severely elevated filling pressures. Mildly increased left atrial size. Thickened mitral valve. Mild mitral annular calcification. Thickened aortic valve. Structurally normal tricuspid valve without significant stenosis or regurgitation. Pulmonary artery systolic pressure is normal. Mild to moderate pulmonary valve regurgitation. There are no intracardiac masses. Trivial pericardial effusion. Compared to the study from 06/24/2016, there is worsening of the diastolic dysfunction Dr Fady Lozada MD [facility] (Electronically Signed) Final Date: 01 March 2024 19:32 Lexiscan stress test: PERFUSION FINDINGS There was a small area of slightly decreased tracer uptake in the basal inferior wall region, with some reversibility FUNCTIONAL RESULTS (calculated via Gated SPECT) Stress Image LV EF (%): 66 Stress EDV (mL):87 TID: 0.96 Stress ESV (mL):30 FUNCTIONAL FINDINGS: Segmental wall motion analysis revealing no gross wall motion abnormalities IMPRESSIONS 1. Myocardial perfusion imaging revealing a small area of slight reversibility in the basal inferior wall region, suggestive of ischemia in the distribution of the right coronary artery (the summed difference score of 1) 2. Normal LV ejection fraction of 66%. 3. LV wall motion analysis revealing no gross wall motion abnormalities. 4. LV volume within normal limits No similar previous studies are available for comparison Dr Fady Lozada MD [facility] (Electronically Signed) Final Date: 02 March 2024 08:35 Laboratory Results WBC 12.80 10^3/uL (3.29-11.43) H 03/03/24 01:45 RBC 3.45 10^6/uL (3.85-5.65) L 03/03/24 01:45 Hgb 11.20 g/dL (11.27-16.99) L 03/03/24 01:45 Hct 33.8 % (36-47) L 03/03/24 01:45 MCV 98.0 fl (85-98) 03/03/24 01:45 MCH 32.5 pg (27-33) 03/03/24 01:45 MCHC 33.1 g/dL (30-55) 03/03/24 01:45 RDW 13.4 % (12.1-15.1) 03/03/24 01:45 Plt Count 379 10^3/cmm (157-399) 03/03/24 01:45 MPV 8.8 fL (7.4-10.4) 03/03/24 01:45 Neut % (Auto) 75.5 % 03/03/24 01:45 Lymph % (Auto) 14.1 % 03/03/24 01:45 Trego % (Auto) 7.3 % 03/03/24 01:45 Eos % (Auto) 1.4 % 03/03/24 01:45 Baso % (Auto) 0.4 % 03/03/24 01:45 Neut # (Auto) 9.67 10^3/uL (1.8-7.7) H 03/03/24 01:45 Lymph # (Auto) 1.8 10^3/uL (0.8-4.8) 03/03/24 01:45 Trego # (Auto) 0.9 10^3/uL (0.2-0.9) 03/03/24 01:45 Eos # (Auto) 0.2 10^3/uL (0.0-0.8) 03/03/24 01:45 Baso # (Auto) 0.1 10^3/uL (0.0-0.1) 03/03/24 01:45 Nucleated RBC % (auto) 0 % 03/03/24 01:45 Nucleated RBCs # 0.0 /100WBC 03/03/24 01:45 PT 14.90 SECONDS (12.1-14.9) 03/01/24 13:00 INR 1.09 (0.8-1.2) 03/01/24 13:00 Sodium 141 mmol/L (136-145) 03/03/24 01:45 Potassium 4.2 mmol/L (3.5-5.1) 03/03/24 01:45 Chloride 102 mmol/L (98-107) 03/03/24 01:45 Carbon Dioxide 28 mmol/L (22-29) 03/03/24 01:45 Anion Gap 15.2 (5-19) 03/03/24 01:45 BUN 15 mg/dL (8-23) 03/03/24 01:45 Creatinine 1.1 mg/dL (0.5-0.9) H 03/03/24 01:45 GFR Calculation Not Reportable 03/03/24 01:45 Glucose 135 mg/dL (65-115) H 03/03/24 01:45 Estimat Average Glucose 111 03/02/24 02:33 Hemoglobin A1c 5.5 % (4.0-6.0) 03/02/24 02:33 Calculated Osmolality 295 mOsm/kg (285-295) 03/03/24 01:45 Calcium 8.8 mg/dL (8.5-10.5) 03/03/24 01:45 Phosphorus 3.5 mg/dL (2.5-4.5) 03/02/24 02:33 Magnesium 1.7 mg/dL (1.7-2.3) 03/02/24 02:33 Iron 23 ug/dL (37-145) L 03/01/24 13:00 TIBC 162 mcg/dl 03/01/24 13:00 % Saturation 14.1 % (20-50) L 03/01/24 13:00 Unsat Iron Binding 139 ug/dL (112-347) 03/01/24 13:00 Total Bilirubin 0.2 mg/dL (0.15-1.2) 03/03/24 01:45 AST 13 U/L (0-32) 03/03/24 01:45 ALT 37 U/L (0-33) H 03/03/24 01:45 Alkaline Phosphatase 142 U/L (35-105) H 03/03/24 01:45 Troponin T Baseline 54 ng/L (0-10) H 03/01/24 13:00 Troponin T 120 Minute 63.53 ng/L (0-10) H 03/01/24 15:27 Delta Troponin T 9.53 ABS# (0-10) 03/01/24 15:27 Troponin T Hi Sens 6Hr 66.85 ng/L (0-10) H 03/01/24 19:07 Troponin T Hi Sens 6Hr Delta 12.85 ng/L (0-12) H* 03/01/24 19:07 Total Protein 5.8 g/dL (6.6-8.7) L 03/03/24 01:45 Albumin 3.0 g/dL (3.5-5.2) L 03/03/24 01:45 Globulin 2.8 g/dL (1.3-4.6) 03/03/24 01:45 Triglycerides 92 mg/dL (0-150) 03/02/24 02:33 Cholesterol 122 mg/dL (0-200) 03/02/24 02:33 LDL Cholesterol, Calc 76 mg/dL (50-129) 03/02/24 02:33 HDL Cholesterol 28 mg/dL (60-100) L 03/02/24 02:33 LDL/HDL Ratio 2.71 RATIO (0.00-3.22) 03/02/24 02:33 Cholesterol/HDL Ratio 4.36 mg/dL (0.0-4.40) 03/02/24 02:33 Vitamin B12 878 pg/mL (232-1245) 03/01/24 13:00 Folate 13.6 ng/mL (4.8-37.3) 03/02/24 02:33 Procalcitonin 0.08 ng/mL (0-0.5) 03/02/24 02:33 TSH 0.54 uIU/mL (0.27-4.20) 03/01/24 13:00 Urine Color Yellow (Yellow) 03/02/24 05:20 Urine Appearance Clear (CLEAR) 03/02/24 05:20 Urine pH 5.5 (5-7) 03/02/24 05:20 Ur Specific Kennard 1.010 (1.005-1.030) 03/02/24 05:20 Urine Protein Negative (Negative) 03/02/24 05:20 Urine Glucose (UA) Negative (Normal) 03/02/24 05:20 Urine Ketones Negative (Negative) 03/02/24 05:20 Urine Blood Negative (Negative) 03/02/24 05:20 Urine Nitrate Negative (Negative) 03/02/24 05:20 Urine Bilirubin Negative (Negative) 03/02/24 05:20 Urine Urobilinogen 1.0 mg/dL (Negative) 03/02/24 05:20 Ur Leukocyte Esterase Negative (Negative) 03/02/24 05:20 Urine RBC 0-2 /hpf (0-2) 03/02/24 05:20 Urine WBC 0-5 /hpf (0-5) 03/02/24 05:20 Ur Squamous Epith Cells 0-5 /hpf (0-5) 03/02/24 05:20 Amorphous Sediment Not Reportable 03/02/24 05:20 Urine Bacteria None seen /hpf (NONE) 03/02/24 05:20 Hyaline Casts 4.11 /lpf 03/02/24 05:20 Vitals Last Vital Signs Temp 98.7 F 03/03/24 09:36 Pulse 73 03/03/24 09:36 Resp 17 03/03/24 09:36 BP 143/67 03/03/24 09:36 Pulse Ox 93 03/03/24 09:36 O2 Del Method Room Air 03/03/24 03:47 Discharge Plan Discharge Patient Disposition: Home Condition: Stable Prescriptions: New famotidine 20 mg Tablet 20 mg PO BID 30 Days Qty: 60 0RF amlodipine 10 mg Tablet 10 mg PO DAILY Qty: 30 0RF hydralazine 50 mg Tablet 50 mg PO TID 30 Days Qty: 90 0RF Eliquis 5 mg Tablet 5 mg PO BID@0900,2100 Qty: 60 0RF Continued atorvastatin 10 mg tablet 10 mg PO DAILY Qty: 90 11RF losartan 100 mg tablet 100 mg PO DAILY Qty: 90 3RF gabapentin 100 mg capsule 100 mg PO TID Qty: 30 3RF clonazepam 1 mg tablet 1 mg PO BID Qty: 60 5RF amitriptyline 25 mg tablet 75 mg PO QPM PRN (Reason: Sleep) Discontinued ibuprofen 800 mg tablet 800 mg PO TID PRN (Reason: Pain) Discharge Orders: Discharge Order (Routine); Ordered 03/03/24 Ordered By: Phillip Hester Referrals: Syed Nesbitt MD [Primary Care Provider] - 2 weeks (We have notified your physician's clinic of the need for a follow-up appointment to be scheduled. If you have not heard from them within the next 2 business days, please call them directly. ) Discharge Diet: Cardiac Discharge Activity: Resume usual activity and Increase activity as tolerated Patient Instructions: Atrial Fibrillation, Famotidine (By mouth), Hydralazine (By mouth), Amlodipine (By mouth), Apixaban (By mouth), Chronic Hypertension (DC), Cardiac Stress Test (GEN), Opioid Safety Activity Restrictions/Additional Instructions: Goal pressure less than 140/90 mmHg. Amlodipine once daily and hydralazine 3 times a day has been added to your medication list. Please check your blood pressure daily at home and maintain a blood pressure diary and follow-up with a primary care provider within next 2 weeks for further adjustment of antihypertensive as needed. Eliquis is a blood thinner which she should take twice daily. Try to avoid using Motrin as much as possible. Try to quit smoking. If you have concerns about chest discomfort or chest pain on exertion please follow-up with the primary care provider for a referral for professional organizer. Discharge Attestations Time Spent in Discharge Care*: greater than 30 min Specific Discharge Activities: educating patient, educating and/or supporting family/caregiver, discussing with pcp/other providers, discussing with casework manager/social workers/dc planners, documenting/other paperwork and evaluating patient/reviewing data Status at Discharge: Cognitive status at discharge: cognitively intact , Behavioral status at discharge: cooperative , Functional status at discharge: independent ambulation , Overall status at discharge: patient is back to baseline Quality Metrics Clinical Quality Measures [ No reported AMI, CVA or VTE this stay] Coding Level of Care Code 48084 Total time (in minutes) for Discharge: 56 Diagnoses Paroxysmal atrial fibrillation with RVR I48.0 Elevated troponin R79.89 Hypertension I10 Hypotension I95.9 Hyperlipidemia E78.5 Positive cardiac stress test R94.39
[2024-03-03 11:28] VITALS: BP 143/72; PULSE 65; RESP 18; TEMP 37; O2SAT 96
--- NOTE | 2024-03-03 11:28 | PC.NURSE ---
Discharge Note Patient discharged to home via POV accompanied by daughter. Discharge instructions reviewed with patient and/or technical account representative. Mobile pharmacy medications and/or prescriptions provided. Belongings/home medications returned.
== END 2024-03-03 11:29 | disposition home or self-care (01) | DRG 310 ==
LOC: ER 14:02 → CSU 15:46
PROVIDERS: Admitting Provider Student in an Organized Health Care Education/Training Program; Emergency Provider Emergency Medicine; PCP Family Medicine; Visit Provider Student in an Organized Health Care Education/Training Program
DX: I48.0 Paroxysmal atrial fibrillation (principal); R79.89 Other specified abnormal findings of blood chemistry; I10 Essential (primary) hypertension; I95.9 Hypotension, unspecified; E78.5 Hyperlipidemia, unspecified; F32.A Depression, unspecified; G47.00 Insomnia, unspecified; F17.200 Nicotine dependence, unspecified, uncomplicated
CPT/HCPCS: 36415; 70450; 71045; 78452; 80053; 80061; 81001; 82607; 82746; 83036; 83540; 83550; 83735; 84100; 84145; 84443; 84484; 85025; 85610; 87426; 93005; 93017; 93306; 94664; 96365; 96366; 96372; 96375; 99285; A9270; A9500; G0378; J0283; J0360; J1650; J2785

== ENCOUNTER → 2024-10-02 09:05 | Outpatient (BNVA) | payer MEDICARE, SELFPAY | PROVIDERS: PCP Family Medicine; Visit Provider Family Medicine | DX: I10 Essential (primary) hypertension (principal); F32.A Depression, unspecified; I48.91 Unspecified atrial fibrillation; M54.9 Dorsalgia, unspecified; G89.29 Other chronic pain | CPT/HCPCS: 80053; 82306; 82607; 83540; 84443; 85025; 85651; 86140 ==

== ENCOUNTER 2024-11-26 08:05 | Outpatient (CLI) | payer MEDICARE, SELFPAY ==
--- NOTE | 2024-11-26 08:45 | MR_ITS ---
WS: [id number] MRI LUMBAR SPINE NONCONTRAST HISTORY: worsening back pain, prior surgery. COMPARISON: 10/13/2020 TECHNIQUE: Sagittal and axial multisequence imaging is submitted. Cervical disc protrusions at C4-5 and C5-6 with mild contact on the cervical cord. Increased signal of the cervical cord at C5-6. Mild increase in thoracic kyphosis. Increase in lumbar lordosis. L2 retrolisthesis by 5.3 mm. Posterior lumbar fusion hardware extends from L3-S1. Extension of the fusion hardware since 2020 to now include L3. No acute fracture. The course of the new fusion at the L2-3 level is difficult to determine due to the artifact. Disc desiccation throughout the lumbar spine. Postsurgical fluid collection at the L5-S1 level similar to the prior study. May be postoperative collection. There is been no increase in size and it is slightly loculated. Conus terminates normally at L1-2 disc level. L1-L2: Mild annular disc bulge and osteophytic ridging. Moderate bilateral facet joint arthritis. No high-grade stenosis. L2-L3: Retrolisthesis of L2. Large posterior laminectomy defect. Artifact from the hardware extends through the L2-3 pedicles. There is deformity of the thecal sac. Moderate central, subarticular recess and moderate to severe bilateral foraminal stenosis. L3-L4: Diffuse mild osteophytic ridging. Advanced bilateral facet joint arthritis. Large posterior laminectomy defect. Narrowing of the thecal sac is slightly progressed since 2020. Mild central, subarticular recess with moderate bilateral foraminal stenosis, RIGHT greater than LEFT. L4-L5: Diffuse osteophytic ridging with bilateral facet joint arthritis. Posterior laminectomy defect. No central stenosis. Mild bilateral foraminal stenosis. L5-S1: Large posterior laminectomy defect. Mild foraminal stenosis. Bilateral renal cysts. Extrarenal pelvis on the RIGHT. No calyceal dilatation. Moderate, unchanged LEFT renal atrophy. Dilated aorta consistent with a mild aneurysm to 3.1 cm. MR/MR lumbar spine wo con* [id number] IMPRESSION: 1. Posterior lumbar spine surgery extends from L3-S1. Large posterior laminect rissa defects. 2. L2 retrolisthesis by 5.3 mm. 3. L2-3: Retrolisthesis of L2 with large laminectomy defect. Artifact from the posterior fusion hardware closely associated with the L2-3 foramina. There is mild narrowing of the thecal sac. Mild central, subarticular recess with modera te to severe bilateral foraminal stenosis. 4. Moderate bilateral foraminal stenosis, RIGHT greater than LEFT at L3-4. Mil d central and subarticular recess stenosis. 5. Mild foraminal stenosis at L4-5 and L5-S1. 6. Stable moderate LEFT renal atrophy. 7. Small aortic aneurysm unchanged.
== END 2024-11-26 08:06 | disposition home or self-care (01) ==
LOC: RAD 08:06
PROVIDERS: PCP Family Medicine; Visit Provider Family Medicine
DX: M48.061 Spinal stenosis, lumbar region without neurogenic claudication (principal); M50.321 Other cervical disc degeneration at C4-C5 level; M50.322 Other cervical disc degeneration at C5-C6 level; M47.816 Spondylosis without myelopathy or radiculopathy, lumbar region; Q61.02 Congenital multiple renal cysts; N26.1 Atrophy of kidney (terminal); I71.9 Aortic aneurysm of unspecified site, without rupture
CPT/HCPCS: 72148

== ENCOUNTER 2025-01-06 06:21 | Inpatient (IN) | payer MEDICARE, SELFPAY ==
[2025-01-06] VITALS (9 sets, daily range): BP systolic 119–206; BP diastolic 55–74; PULSE 70–86; RESP 15–18; TEMP 36.5–37.3; O2SAT 84–98; BMI 26.0; BMI 25.0
--- NOTE | 2025-01-06 06:50 | CTR_ITS ---
PROCEDURE INFORMATION: Exam: CT Abdomen And Pelvis With Contrast Exam date and time: 01/06/2025 8:28 AM Age: 79 years old Clinical indication: Abdominal tenderness and vomiting; Abdominal pain; Generalized; Prior surgery; Surgery date: 6+ months; Surgery type: Gb, lumbar TECHNIQUE: Imaging protocol: Computed tomography of the abdomen and pelvis with contrast. Radiation optimization: All CT scans at this facility use at least one of these dose optimization techniques: automated exposure control; mA and/or kV adjustment per patient size (includes targeted exams where dose is matched to clinical indication); or iterative reconstruction. Contrast material: OMNIPAQUE 350; Contrast volume: 100 ml; Contrast route: INTRAVENOUS (IV); COMPARISON: MR lumbar spine wo con* [id number] 11/26/2024 9:04 AM RADIATION DOSE METRICS: Total DLP (mGy-cm): 592.22 FINDINGS: Lungs: Mild basilar atelectasis. There are a few scattered pulmonary nodules in the lung bases measuring less than 6 mm. Coronary arteries: Severe atherosclerotic calcification of the coronary arteries. Liver: Lesion measuring 3.3 x 2.8 cm in the right hepatic lobe which demonstrates heterogeneous internal enhancement. This is incompletely characterized on this single-phase exam. Multiple additional hepatic cysts. Gallbladder and biliary ducts: Prior cholecystectomy. Extrahepatic biliary prominence without mineralized stones, probably related to reservoir effect in the absence of biliary stasis. Pancreas: Atrophic pancreas. Spleen: The spleen appears unremarkable. Adrenal glands: The adrenal glands are unremarkable. Kidneys and ureters: Bilateral simple renal cysts are present, as well as other subcentimeter hypodensities which are too small to characterize. Atrophic left kidney. Small renal vascular calcifications in the jeffry versus small nonobstructing caliceal stones. No obstructing stones or hydronephrosis. Stomach and bowel: Dilated proximal and mid small bowel loops with transition point in the left lower quadrant (series 4, image 64) and decompressed distal small bowel loops and colon. Findings consistent with small bowel obstruction with clumped dilated small bowel loops in the pelvis, suspicious for an internal hernia/closed loop obstruction. Small amount of free fluid. Appendix: Appendix is not definitively seen but there is no pericecal inflammatory change. Intraperitoneal space: No free intraperitoneal air. Vasculature: The visualized aorta and vasculature demonstrates marked atherosclerotic calcification. Aneurysmal dilatation in the abdominal aorta, measuring up to 4 cm in diameter. Lymph nodes: No pathologically enlarged lymph nodes demonstrated. Urinary bladder: The bladder is mostly decompressed. Reproductive: Prior hysterectomy. Bones/joints: Postsurgical changes from multilevel fusion and laminectomy in the lumbar spine. Moderate degenerative change in the upper lumbar and visualized lower thoracic spine. Soft tissues: Small hernia in the left lateral abdominal wall containing fat and small amount of fluid. CT/CT abdomen pelvis w con* [id number] IMPRESSION: 1. Small bowel obstruction with clumped dilated small bowel loops in the pelvis, suspicious for an internal hernia/closed loop obstruction. Small amount of free fluid. Possible slight decreased mural enhancement of the clumped small bowel loops in the pelvis without focal bowel wall thickening, pneumatosis, or portal venous air at this time. 2. Aneurysmal dilatation in the abdominal aorta, measuring up to 4 cm in diameter. Follow-up imaging in 1 year is recommended. 3. Right hepatic lesion measuring up to 3.3 which demonstrates heterogeneous internal enhancement. This is incompletely characterized on this single-phase exam. Further evaluation with non-emergent liver MRI is recommended. Multiple additional hepatic cysts. (Reference: Felipe) 4. There are a few scattered pulmonary nodules in the lung bases measuring less than 6 mm. For patients at low risk (minimal or absent history of smoking and of other known risk factors), no routine follow-up is indicated. For patients at high risk (history of smoking or of other known risk factors), consider optional CT Chest at 12 months (Reference: Rhona). 5. Other incidental and nonemergent findings are discussed above. COMMENTS: Consistent with the [employer]'s Incidental Findings Committee white paper (J Am Kamar Radiol 2018): Any incidental renal lesion less than 1 cm or classified as too small to characterize, or any incidental cystic renal lesion characterized as simple-appearing, is likely benign. No follow-up imaging is recommended for these lesions per consensus recommendations based on imaging criteria. REFERENCES: 1. Rhona H, et al. Guidelines for Management of Incidental Pulmonary Nodules Detected on CT Images: From the Fleischner Society 2017. Radiology. 2017;284(1):228-243. 2. Felipe ARANDA et al. Management of Incidental Liver Lesions on CT: A White Paper of the ACR Incidental Findings Committee. J Am Kamar Radiol. 2017;14(11):7072-9054.
--- NOTE | 2025-01-06 06:51 | W.ED.ABDPA2 ---
HPI - Abdominal Pain General: Chief Complaint: Abdominal Pain Stated Complaint: n/v/no bm movements Time Seen by Provider: 01/06/25 06:41 Source: patient Mode of arrival: ambulatory Limitations: no limitations History of Present Illness: 79-year-old female states that she has been having some abdominal distention along with vomiting is going on for 3 days. Last episode of vomiting was this morning. Patient states she also has not been able to have a bowel movement in 3 days as well. She denies any severe pain and has had a cholecystectomy and hysterectomy denies any history of bowel obstructions. She denies any fevers. Associated Symptoms: Reports vomiting Related Data Home Medications ?Medication ?Instructions ?Recorded ?Confirmed atorvastatin 10 mg tablet 10 mg PO QPM 01/06/25 01/06/25 Previous Rx's ?Medication ?Instructions ?Recorded losartan 100 mg tablet 100 mg PO DAILY #90 tabs 02/20/24 amlodipine 10 mg tablet 10 mg PO DAILY #30 tabs 04/03/24 apixaban 5 mg tablet (Eliquis) 5 mg PO BID@0900,2100 #60 tabs 09/24/24 clonazepam 1 mg tablet 1 mg PO BID #60 tabs 11/25/24 hydrocodone 5 mg-acetaminophen 325 1 tab PO Q8H PRN pain 2 weeks #30 12/07/ mg tablet tabs gabapentin 100 mg capsule See Rx Instructions .Route 01/04/25 .COMPLEX #150 caps Allergies Allergy/AdvReac Type Severity Reaction Status Date / Time codeine Allergy Severe Unknown Verified 09/24/24 15:44 sulfamethoxazole (From Allergy Severe Unknown Verified 09/24/24 15:44 Bactrim) trimethoprim (From Bactrim) Allergy Severe Unknown Verified 09/24/24 15:44 carvedilol (From Coreg) Allergy Intermediate bradycardia Verified 09/24/24 15:44 escitalopram (From Lexapro) Allergy Intermediate headaches Verified 09/24/24 15:44 methylphenidate (From Allergy Mild side Verified 09/24/24 15:44 Ritalin) effects duloxetine (From Cymbalta) Allergy unknown Verified 09/24/24 15:44 trazodone AdvReac Severe confusion Verified 09/24/24 15:44 atorvastatin AdvReac Intermediate myalgias Verified 09/24/24 15:44 cyclobenzaprine (From AdvReac Intermediate hallucinati Verified 09/24/24 15:44 Flexeril) ons levofloxacin (From Levaquin) AdvReac Intermediate hands felt Verified 09/24/24 15:44 on fire Review of Systems GI: Reports: vomiting PFSH ED PFSH: Medical History Coronary artery disease Insomnia Chronic back pain Depression Hyperlipidemia Hypertension Family History Other CAD (coronary artery disease) Social History Smoking and tobacco/nicotine status: never used tobacco/nicotine Alcohol intake: never Substance/Drug Use: never Caregiver/support person: Yes Lives independently: Yes Housing: House Current occupational status: retired Physical Exam Const: COMMON NORMALS: no acute distress, patient oriented x3 and healthy appearing HENMT: COMMON NORMALS: normocephalic and atraumatic HEAD & SCALP: normocephalic and atraumatic Neck/C-Spine: COMMON NORMALS: full ROM and supple Chest: COMMONS NORMALS: normal inspection of the chest and normal palpation of entire chest wall Resp: COMMON NORMALS: normal respiratory effort, No retractions, No use of accessory muscles and clear to auscultation bilaterally AUSCULTATION: clear to auscultation bilaterally Cardio: COMMON NORMALS: regular rate, regular rhythm and No murmurs present (Cardio) RATE: regular rate RHYTHM: regular rhythm GI: COMMON NORMALS: Normal to inspection, nondistended, normoactive bowel sounds present, Soft to palpation, non-tender and no masses PALPATION: Yes Soft to palpation Extremity: COMMON NORMALS: normal to inspection and full ROM Neuro: COMMON NORMALS: patient oriented x3, moves all extremities and no focal motor deficits Psych: COMMON NORMALS: mental status grossly normal, Normal thought process present and cooperative THOUGHT PROCESS: Normal thought process present Skin: COMMON NORMALS: no rashes or lesions noted and no wounds GENERAL SKIN EXAM: no rashes or lesions noted Course Vital Signs: Vital signs: Vital Signs Temperature 98.6 F 01/06/25 06:44 Pulse Rate 85 01/06/25 06:44 Respiratory Rate 15 01/06/25 06:44 Blood Pressure 119/61 01/06/25 06:44 Pulse Oximetry 97 01/06/25 06:44 Oxygen Delivery Me thod Room Air 01/06/25 06:44 MDM - Abdominal Pain Medical Decision Making 79-year-old female presents here with vomiting no bowel movement over the last 3 days some abdominal distention differential includes constipation, diverticulitis, small bowel obstruction. Did review her lab work which showed no significant abnormalities. CT of her abdomen does show small bowel obstruction with possible internal hernia hernia closed-loop obstruction. Her exam here showed no tenderness she has no signs of ischemic bowel. I did speak to surgeon Dr. Garcia who is consulted. I spoke to hospitalist OR JONATHAN who is admitting I did go over the findings with patient we will place an NG tube and admit she understands agrees to plan Medical Records I reviewed the patient's medical records. Lab Data 01/06/25 06:58 01/06/25 07:24 Labs/Radiology: Radiology Impressions Abdomen/Pelvis CT 01/06/25 06:50 IMPRESSION: 1. Small bowel obstruction with clumped dilated small bowel loops in the pelvis, suspicious for an internal hernia/closed loop obstruction. Small amount of free fluid. Possible slight decreased mural enhancement of the clumped small bowel loops in the pelvis without focal bowel wall thickening, pneumatosis, or portal venous air at this time. 2. Aneurysmal dilatation in the abdominal aorta, measuring up to 4 cm in diameter. Follow-up imaging in 1 year is recommended. 3. Right hepatic lesion measuring up to 3.3 which demonstrates heterogeneous internal enhancement. This is incompletely characterized on this single-phase exam. Further evaluation with non-emergent liver MRI is recommended. Multiple additional hepatic cysts. (Reference: Felipe) 4. There are a few scattered pulmonary nodules in the lung bases measuring less than 6 mm. For patients at low risk (minimal or absent history of smoking and of other known risk factors), no routine follow-up is indicated. For patients at high risk (history of smoking or of other known risk factors), consider optional CT Chest at 12 months (Reference: Rhona). 5. Other incidental and nonemergent findings are discussed above. COMMENTS: Consistent with the [employer]'s Incidental Findings Committee white paper (J Am Kamar Radiol 2018): Any incidental renal lesion less than 1 cm or classified as too small to characterize, or any incidental cystic renal lesion characterized as simple-appearing, is likely benign. No follow-up imaging is recommended for these lesions per consensus recommendations based on imaging criteria. REFERENCES: 1. Rhona H, et al. Guidelines for Management of Incidental Pulmonary Nodules Detected on CT Images: From the Fleischner Society 2017. Radiology. 2017;284(1):228-243. 2. Felipe ARANDA, et al. Management of Incidental Liver Lesions on CT: A White Paper of the ACR Incidental Findings Committee. J Am Kamar Radiol. 2017;14(11):3692-3739. ADDENDUM: 01/06/25 0922 THIS REPORT CONTAINS FINDINGS THAT MAY BE CRITICAL TO PATIENT CARE. The findings were verbally communicated via telephone conference with MARIUM SILVA at 9:19 AM [employer] on 01/06/2025. The findings were acknowledged and understood. Laboratory Results WBC 10.78 10^3/uL (3.29-11.43) 01/06/25 06:58 RBC 4.40 10^6/uL (3.85-5.65) 01/06/25 06:58 Hgb 14.30 g/dL (11.27-16.99) 01/06/25 06:58 Hct 42.4 % (36-47) 01/06/25 06:58 MCV 96.4 fl (85-98) 01/06/25 06:58 MCH 32.5 pg (27-33) 01/06/25 06:58 MCHC 33.7 g/dL (30-55) 01/06/25 06:58 RDW 15.5 % (12.1-15.1) H 01/06/25 06:58 Plt Count 262 10^3/cmm (157-399) 01/06/25 06:58 MPV 9.9 fL (7.4-10.4) 01/06/25 06:58 Neut % (Auto) 74.5 % 01/06/25 06:58 Lymph % (Auto) 10.3 % 01/06/25 06:58 [place] % (Auto) 14.5 % 01/06/25 06:58 Eos % (Auto) 0.1 % 01/06/25 06:58 Baso % (Auto) 0.2 % 01/06/25 06:58 Neut # (Auto) 8.04 10^3/uL (1.8-7.7) H 01/06/25 06:58 Lymph # (Auto) 1.1 10^3/uL (0.8-4.8) 01/06/25 06:58 [place] # (Auto) 1.6 10^3/uL (0.2-0.9) H 01/06/25 06:58 Eos # (Auto) 0.0 10^3/uL (0.0-0.8) 01/06/25 06:58 Baso # (Auto) 0.0 10^3/uL (0.0-0.1) 01/06/25 06:58 Nucleated RBC % (auto) 0 % 01/06/25 06:58 Nucleated RBCs # 0.0 /100WBC 01/06/25 06:58 Sodium 139 mmol/L (136-145) 01/06/25 07:24 Potassium 4.6 mmol/L (3.5-5.1) 01/06/25 07:24 Chloride 97 mmol/L (98-107) L 01/06/25 07:24 Carbon Dioxide 31 mmol/L (22-29) H 01/06/25 07:24 Anion Gap 15.6 (5-19) 01/06/25 07:24 BUN 38 mg/dL (8-23) H 01/06/25 07:24 Creatinine 1.7 mg/dL (0.5-0.9) H 01/06/25 07:24 GFR Calculation Not Reportable 01/06/25 07:24 Glucose 130 mg/dL (65-115) H 01/06/25 07:24 Calculated Osmolality 299 mOsm/kg (285-295) H 01/06/25 07:24 Calcium 9.3 mg/dL (8.5-10.5) 01/06/25 07:24 Total Bilirubin 0.9 mg/dL (0.15-1.2) 01/06/25 07:24 AST 17 U/L (0-32) 01/06/25 07:24 ALT 11 U/L (0-33) 01/06/25 07:24 Alkaline Phosphatase 129 U/L (35-105) H 01/06/25 07:24 Total Protein 6.5 g/dL (6.6-8.7) L 01/06/25 07:24 Albumin 3.7 g/dL (3.5-5.2) 01/06/25 07:24 Globulin 2.8 g/dL (1.3-4.6) 01/06/25 07:24 Lipase 25 U/L (13-60) 01/06/25 07:24 All radiology interpretation(s) finalized by discharge Discharge Plan Discharge Patient Disposition: Admitted As Inpatient Clinical Impression: Small bowel obstruction Condition: Stable Coding Level of Care Code ED Retail District Manager for Demetris Menchaca
[2025-01-06] MEDS: ondansetron 2 mg/ML SDV 2 mL 4 MG IVP (07:06)
[2025-01-06 07:11] LABS: Hematocrit 42.4 % (36-47); Hemoglobin 14.30 g/dL (11.27-16.99); Mean Corpuscular HGB Conc 33.7 g/dL (30-55); Mean Corpuscular Hemoglobin 32.5 pg (27-33); Mean Corpuscular Volume 96.4 fl (85-98); Nucleated Red Blood Cells % 0 %; Platelet Count 262 10^3/cmm (157-399); Red Blood Count 4.40 10^6/uL (3.85-5.65); White Blood Count 10.78 10^3/uL (3.29-11.43)
[2025-01-06 08:08] LABS: Alanine Aminotransferase 11 U/L (0-33); Albumin Level 3.7 g/dL (3.5-5.2); Alkaline Phosphatase 129 U/L (35-105); Anion Gap 15.6 (5-19); Aspartate Amino Transferase 17 U/L (0-32); Blood Urea Nitrogen 38 mg/dL (8-23); Calcium 9.3 mg/dL (8.5-10.5); Carbon Dioxide 31 mmol/L (22-29); Chloride 97 mmol/L (98-107); Globulin 2.8 g/dL (1.3-4.6); Glucose 130 mg/dL (65-115); Lipase 25 U/L (13-60); Osmolality Calculated 299 mOsm/kg (285-295); Potassium 4.6 mmol/L (3.5-5.1); Sodium 139 mmol/L (136-145); Total Protein 6.5 g/dL (6.6-8.7)
[2025-01-06] MEDS: iohexol 350 mg/mL 500 mL Btl (per mL) IV (08:32)
[2025-01-06] MEDS: LORazepam 2 mg/mL INJ 1 mL 1 MG IVP (09:38)
--- NOTE | 2025-01-06 09:53 | XRR_ITS ---
PROCEDURE INFORMATION: Exam: XR Chest Exam date and time: 01/06/2025 9:58 AM Age: 79 years old Clinical indication: Device placement; Ng tube; Additional info: Ng placement TECHNIQUE: Imaging protocol: Radiologic exam of the chest. Views: 1 view. COMPARISON: CR XR chest 1V portable [id number] 03/01/2024 12:47 PM FINDINGS: Tubes, catheters and devices: Subdiaphragmatic gastric suction tube with the tip in the expected location of the body of the stomach. Mildly dilated small bowel loops seen in the visualized upper abdomen. Lungs: No focal consolidation or other acute appearing pulmonary opacity. Pleural spaces: No pneumothorax. No significant size pleural effusion identified. Heart/Mediastinum: The cardiac silhouette is normal in size. Bones/joints: There is no acute osseous abnormality. Partially visualized lumbar spine fusion hardware. XR/XR chest 1V portable [id number] IMPRESSION: 1. Subdiaphragmatic gastric suction tube with the tip in the expected location of the body of the stomach. Mildly dilated small bowel loops seen in the visualized upper abdomen. 2. No acute radiographic cardiopulmonary abnormality.
[2025-01-06 09:55] LABS: Lactic Sepsis W/Reflex 2.3 mmol/L (0.5-2.2)
--- NOTE | 2025-01-06 09:57 | PM.CONSULT ---
Providers/Reason For Consult Consulting Physician/Specialty*: General Surgery Reason for Consult*: Small bowel obstruction Attending Physician: Mino Moctezuma MD Primary Care Provider: Syed Nesbitt MD History of Present Illness History of Present Illness Joycelyn Holden is a 79 year old female Who presents to the ER with 3 days of abdominal pain distention nausea and vomiting. According to the patient she usually has a bowel movement every 2 days but has not had 1 in the last 3 days, she took some milk of mag without significant improvement and she actually started throwing up and having abdominal distention or bloating. She has history of Hysterectomy and cholecystectomy.Denies significant abdominal pain, But she has had cramping all over.According to the patient the output of the vomit was initially bilious but then became feculent Review of Systems General: Reports: 10 or more systems reviewed and unremarkable except in HPI and below Medications/Allergies Home Medications ?Medication ?Instructions ?Recorded ?Confirmed ?Last Taken ?Type losartan 100 mg tablet 100 mg PO DAILY #90 tabs 02/20/24 01/06/25 01/03/25 Rx amlodipine 10 mg tablet 10 mg PO DAILY #30 tabs 04/03/24 01/06/25 01/03/25 Rx apixaban 5 mg tablet (Eliquis) 5 mg PO BID@0900,2100 #60 tabs 09/24/24 01/06/25 01/06/25 Rx clonazepam 1 mg tablet 1 mg PO BID #60 tabs 11/25/24 01/06/25 01/06/25 Rx hydrocodone 5 mg-acetaminophen 325 1 tab PO Q8H PRN pain 2 weeks #30 12/07/24 01/06/25 Unknown Rx mg tablet tabs gabapentin 100 mg capsule See Rx Instructions .Route 01/04/25 01/06/25 01/03/25 Rx .COMPLEX #150 caps atorvastatin 10 mg tablet 10 mg PO QPM 01/06/25 01/06/25 01/03/25 History Allergies Allergy/AdvReac Type Severity Reaction Status Date / Time codeine Allergy Severe Unknown Verified 09/24/24 15:44 sulfamethoxazole (From Allergy Severe Unknown Verified 09/24/24 15:44 Bactrim) trimethoprim (From Bactrim) Allergy Severe Unknown Verified 09/24/24 15:44 carvedilol (From Coreg) Allergy Intermediate bradycardia Verified 09/24/24 15:44 escitalopram (From Lexapro) Allergy Intermediate headaches Verified 09/24/24 15:44 methylphenidate (From Allergy Mild side Verified 09/24/24 15:44 Ritalin) effects duloxetine (From Cymbalta) Allergy unknown Verified 09/24/24 15:44 trazodone AdvReac Severe confusion Verified 09/24/24 15:44 atorvastatin AdvReac Intermediate myalgias Verified 09/24/24 15:44 cyclobenzaprine (From AdvReac Intermediate hallucinati Verified 09/24/24 15:44 Flexeril) ons levofloxacin (From Levaquin) AdvReac Intermediate hands felt Verified 09/24/24 15:44 on fire PFSH Acute PFSH: Medical History (Updated 01/06/25 @ 10:00 by Nikko Garcia MD) Coronary artery disease Insomnia Chronic back pain Depression Hyperlipidemia Hypertension Family History Other CAD (coronary artery disease) Social History Smoking and tobacco/nicotine status: never used tobacco/nicotine Alcohol intake: never Substance/Drug Use: never Caregiver/support person: Yes Lives independently: Yes Housing: House Current occupational status: retired Vitals/I&O/Wt Last Vital Signs Temp 98.6 F 01/06/25 06:44 Pulse 85 01/06/25 06:44 Resp 15 01/06/25 06:44 BP 119/61 01/06/25 06:44 Pulse Ox 97 01/06/25 06:44 O2 Del Method Room Air 01/06/25 06:44 01/05/25 01/06/25 01/06/25 22:59 06:59 14:59 Intake Total 1000 / 1000 Balance 1000 / 1000 Weight last 48 hrs Weight 147 lb Physical Exam Narrative: Abdominal exam is benign abdomen is soft there is very mildly tender, there is bowel sounds that are high pitch there is some distention. An NG tube was inserted at the bedside and the output was around 600 cc of bilious fluid Data 01/06/25 06:58 01/06/25 07:24 A&P Assessment and plan 1. Small bowel obstruction: 2. BROOKLYNN (acute kidney injury): Plan: This is a 79-year-old female who presents to the hospital with clinical picture concerning for SBO. Laboratory workup shows a normal white count normal lactate level but elevated creatinine. A CT scan was done and showed evidence of distention of the small bowel up to the level of the pelvis were a clump of nondilated small bowel was noted, there is no signs of bowel ischemia this was read as a concern for possibility of an internal hernia or even a closed-loop obstruction. I personally reviewed the imaging, taking consideration patient history of hysterectomy at the most likely this is obstruction is likely due to adhesions in the pelvis caused by her hysterectomy. There is no clinical or imaging signs suggesting bowel suffering and therefore conservative management is appropriate to begin. I have explained to the patient that about 80% of patients with a small bowel obstruction will resolve with decompression but in the remaining 20% an operation will be needed. I will likely decompress for 48 hours before doing a Gastrografin trial to decide if there is the need of additional surgical management. I have explained to the patient that in the case of clinical deterioration or worsening of her clinical picture she will require surgery despite initial plan for conservative management and she shows understanding. I will continue to follow-up on a daily basis. All other management per primary team is appreciated, which should be held anticoagulation in the anticipation of possible need of surgery PDMP PDMP Reviewed: Not Reviewed Coding Level of Care Code 00597 Diagnoses Small bowel obstruction K56.609 BROOKLYNN (acute kidney injury) N17.9
[2025-01-06 09:58] LABS: Reflex Lactate Order REFLEX LACTIC ORDERD
--- NOTE | 2025-01-06 09:59 | PC.NURSE ---
NG tube placed by Dr. Garcia.
--- NOTE | 2025-01-06 10:08 | PM.HP ---
Providers/Chief Complaint Admitting Physician: Mino Moctezuma MD Primary Care Provider: Syed Nesbitt MD Chief Complaint: n/v/no bm movements History of Present Illness Joycelyn Holden is a 79 year old female who presented to the ER after having abdominal pain, nausea and vomiting consistently for the last 2 days, no bowel movement x 4 days. Patient has history of hysterectomy, cholecystectomy, no history of small bowel obstruction previous. Patient continues to endorse nausea and vomiting, denies current chest pain, shortness of breath, recent falls or injuries, dark or tarry stools, or syncope. Patient found to have small bowel obstruction, ER provider consulted general surgeon who graciously agrees to consultation. Patient has NG tube in place with feculent drainage noted. Review of Systems General: Reports: 10 or more systems reviewed and unremarkable except in HPI and below Const: Reports: other (nausea and vomiting) ENMT: Reports: hoarseness GI: Reports: abdominal pain, vomiting and constipation Medications/Allergies Home Medications ?Medication ?Instructions ?Recorded ?Confirmed ?Last Taken ?Type losartan 100 mg tablet 100 mg PO DAILY #90 tabs 02/20/24 01/06/25 01/03/25 Rx amlodipine 10 mg tablet 10 mg PO DAILY #30 tabs 04/03/24 01/06/25 01/03/25 Rx apixaban 5 mg tablet (Eliquis) 5 mg PO BID@0900,2100 #60 tabs 09/24/24 01/06/25 01/06/25 Rx clonazepam 1 mg tablet 1 mg PO BID #60 tabs 11/25/24 01/06/25 01/06/25 Rx hydrocodone 5 mg-acetaminophen 325 1 tab PO Q8H PRN pain 2 weeks #30 12/07/24 01/06/25 Unknown Rx mg tablet tabs gabapentin 100 mg capsule See Rx Instructions .Route 01/04/25 01/06/25 01/03/25 Rx .COMPLEX #150 caps atorvastatin 10 mg tablet 10 mg PO QPM 01/06/25 01/06/25 01/03/25 History Allergies Allergy/AdvReac Type Severity Reaction Status Date / Time codeine Allergy Severe Unknown Verified 09/24/24 15:44 sulfamethoxazole (From Allergy Severe Unknown Verified 09/24/24 15:44 Bactrim) trimethoprim (From Bactrim) Allergy Severe Unknown Verified 09/24/24 15:44 carvedilol (From Coreg) Allergy Intermediate bradycardia Verified 09/24/24 15:44 escitalopram (From Lexapro) Allergy Intermediate headaches Verified 09/24/24 15:44 methylphenidate (From Allergy Mild side Verified 09/24/24 15:44 Ritalin) effects duloxetine (From Cymbalta) Allergy unknown Verified 09/24/24 15:44 trazodone AdvReac Severe confusion Verified 09/24/24 15:44 atorvastatin AdvReac Intermediate myalgias Verified 09/24/24 15:44 cyclobenzaprine (From AdvReac Intermediate hallucinati Verified 09/24/24 15:44 Flexeril) ons levofloxacin (From Levaquin) AdvReac Intermediate hands felt Verified 09/24/24 15:44 on fire PFSH Acute PFSH: Medical History (Updated 01/06/25 @ 10:00 by Nikko Garcia MD) Coronary artery disease Insomnia Chronic back pain Depression Hyperlipidemia Hypertension Family History Other CAD (coronary artery disease) Social History Smoking and tobacco/nicotine status: never used tobacco/nicotine Alcohol intake: never Substance/Drug Use: never Caregiver/support person: Yes Lives independently: Yes Housing: House Current occupational status: retired Vitals/I&O/Wt Last Vital Signs Temp 98.6 F 01/06/25 06:44 Pulse 85 01/06/25 06:44 Resp 15 01/06/25 06:44 BP 119/61 01/06/25 06:44 Pulse Ox 97 01/06/25 06:44 O2 Del Method Room Air 01/06/25 06:44 01/05/25 01/06/25 01/06/25 22:59 06:59 14:59 Intake Total 1000 / 1000 Balance 1000 / 1000 Weight last 48 hrs Weight 66.678 kg Physical Exam Const: COMMON NORMALS: patient oriented x3, healthy appearing and well nourished HENMT: COMMON NORMALS: normocephalic, Normal external nose present and moist oral mucous membranes Eye: COMMON NORMALS: Equal, round and reactive pupils present Resp: COMMON NORMALS: normal respiratory effort and clear to auscultation bilaterally Cardio: COMMON NORMALS: regular rate, regular rhythm, S1 normal heart sound present and S2 normal heart sound present GI: AUSCULTATION: Yes Hypoactive bowel sounds present PALPATION: Yes Firmness to palpation present (GI) Extremity: COMMON NORMALS: normal to inspection and full ROM Neuro: COMMON NORMALS: patient oriented x3 and CN's II-XII intact bilaterally Psych: COMMON NORMALS: mental status grossly normal, cooperative, normal affect and speech normal Skin: COMMON NORMALS: no rashes or lesions noted and turgor normal Data 01/06/25 06:58 01/06/25 07:24 A&P Assessment and plan 1. Small bowel obstruction: 2. BROOKLYNN (acute kidney injury): 3. Hypertension: 4. Hyperlipidemia: 5. Atrial fibrillation: 6. Insomnia: 7. Depression: Plan: Small bowel obstruction - NPO - NG Tube in place - Greatly appreciate general surgical consultation and management with Dr. Garcia - Conservative management for now Acute kidney injury - Admitting Cr - Cntinue Gentle IV fluid hydration with NS KCL 20 mEq at 100mL/hr - Renally dose medications - Avoid nephrotoxic agents - Monitor creatinine Hypertension - Holding amlodipine due to NPO Hyperlipidemia - Holding Atorvastatin while NPO Atrial fibrillation - Rate controlled - Holding Eliquis - SQ lovenox therapeutic dosing, can be held if surgical interventions needed Insomnia - supportive measures Depression Anxiety - Holding oral medications - PRN Ativan VTE PPx: SCDs, SQ Lovenox GI PPx: PPI CODE STATUS: Full code PDMP PDMP Reviewed: Not Reviewed Attestations Medical Necessity Statement*: Requires inpatient hospitalization crossing 2 midnights for management of small bowel obstruction, acute kidney injury with general surgical consultation and potential surgical interventions, NG tube, continued IV fluid hydration and medical management. Time Spent in Patient Care: Time spent in patient care, coordination with specialties, and documentation 78 minutes. Coding Level of Care Code 55092 Diagnoses Small bowel obstruction K56.609 BROOKLYNN (acute kidney injury) N17.9 Hypertension I10 Hyperlipidemia E78.5 Atrial fibrillation I48.91 Insomnia G47.00 Depression F32.A
[2025-01-06 11:03] LABS: Lactic Acid level (Lactate) 1.4 mmol/L (0.5-2.2)
[2025-01-06] MEDS: pantoprazole 40 mg SDV IVP (11:11)
[2025-01-06] MEDS: sodium chlor 0.9% + KCl 20 mEq 20 MEQ/1,000 ML BAG 125 MEQ IV ×2 (11:11→19:17)
--- NOTE | 2025-01-06 17:12 | PM.MISC ---
Miscellaneous Note Purpose of Documentation: Update on patient care Note: Patient feeling better after decompression, no significant abdominal pain or cramping abdominal signs benign although she is still somehow distended and bowel sounds are high pitch. Will continue to monitor and plan will be for decompression for another 24 to 48 hours before proceeding with a Gastrografin challenge
[2025-01-06] MEDS: phenol oral Spray 177 mL 5 SPRAY MUCOUS MEM (17:21)
--- NOTE | 2025-01-06 23:21 | PC.NURSE ---
pt got out of bed to go bathroom, pulled NG tube out in the process. new 18FR NG tube inserted to left nostril.
[2025-01-07] VITALS: BP 168/84; PULSE 79; RESP 17; TEMP 36.8; O2SAT 92
[2025-01-07] MEDS: hyDRALAzine 20 mg/mL INJ 1 mL 5 MG IVP ×2 (00:53→11:16)
[2025-01-07] MEDS: sodium chlor 0.9% + KCl 20 mEq 20 MEQ/1,000 ML BAG 125 MEQ IV ×3 (03:00→19:39)
[2025-01-07 03:09] LABS: Hematocrit 38.4 % (36-47); Hemoglobin 12.60 g/dL (11.27-16.99); Mean Corpuscular HGB Conc 32.8 g/dL (30-55); Mean Corpuscular Hemoglobin 33.2 pg (27-33); Mean Corpuscular Volume 101.1 fl (85-98); Nucleated Red Blood Cells % 0 %; Platelet Count 230 10^3/cmm (157-399); Red Blood Count 3.80 10^6/uL (3.85-5.65); White Blood Count 8.89 10^3/uL (3.29-11.43)
[2025-01-07 03:22] LABS: Lactate (Lactic Acid level) 0.9 mmol/L (0.5-2.2)
[2025-01-07 03:28] LABS: Alanine Aminotransferase 10 U/L (0-33); Albumin Level 3.5 g/dL (3.5-5.2); Alkaline Phosphatase 110 U/L (35-105); Anion Gap 14.2 (5-19); Aspartate Amino Transferase 15 U/L (0-32); Blood Urea Nitrogen 30 mg/dL (8-23); Calcium 8.5 mg/dL (8.5-10.5); Carbon Dioxide 26 mmol/L (22-29); Chloride 104 mmol/L (98-107); Globulin 2.5 g/dL (1.3-4.6); Glucose 100 mg/dL (65-115); Magnesium 1.9 mg/dL (1.7-2.3); Osmolality Calculated 296 mOsm/kg (285-295); Potassium 4.2 mmol/L (3.5-5.1); Sodium 140 mmol/L (136-145); Total Protein 6.0 g/dL (6.6-8.7)
[2025-01-07 04:00] VITALS: BP 176/75; PULSE 90; RESP 18; TEMP 36.8; O2SAT 90
[2025-01-07 06:00] VITALS: BMI 24.8
--- NOTE | 2025-01-07 06:57 | P.PN_ITS ---
Subjective 2 Subjective: Doing well overnight, endorses passing some gas, no abdominal pain at this moment, NG output continues to be bilious Vitals/I&O/Wt Last Vital Signs Temp 98.3 F 01/07/25 04:00 Pulse 90 01/07/25 04:00 Resp 18 01/07/25 04:00 BP 176/75 01/07/25 04:00 Pulse Ox 90 01/07/25 04:00 O2 Del Method Nasal Cannula 01/07/25 04:00 O2 Flow Rate 2 01/07/25 04:00 01/06/25 01/06/25 01/07/25 14:59 22:59 06:59 Intake Total 1000 / 1000 1000 / 2000 964.583 / 2964.583 Output Total 600 / 600 470 / 1070 Balance 1000 / 1000 400 / 1400 494.583 / 1894.583 Weight last 48 hrs Weight 154 lb Weight 154 lb Weight 154 lb 12.8 oz Weight 147 lb Physical Exam 2 GI: OTHER: Benign abdominal exam abdomen soft minimally tender to palpation. Bowel sounds are present Data 01/07/25 02:48 01/07/25 02:48 A&P Assessment and plan 1. Small bowel obstruction: Plan: Plan will be to continue additional 24 hours of decompression and tomorrow we will do a Gastrografin trial to evaluate for bowel patency. All other management per medical team is appreciated. General surgery will continue to follow PDMP PDMP Reviewed: Not Reviewed Attestations 2 Medical Necessity Statement*: Per medical Coding Level of Care Code Acute Code for Chg Fwd Diagnoses Small bowel obstruction K56.609
--- NOTE | 2025-01-07 07:26 | P.PN_ITS ---
Subjective 2 Subjective: Patient is a very pleasant 79-year-old female seen and examined at bedside on hospital rounds today. Patient sitting up in bed, NG tube in place to wall suction. Patient states that she has passed gas, has not had a bowel movement but feels less bloated, still does have some abdominal tenderness. Patient denies new or worsening symptoms. Vital signs remained stable. Improved creatinine to 1.2, will continue IV fluid hydration given patient's n.p.o. status. Greatly appreciate general surgical consultation and management with who states in his note that the patient will continue additional 24 hours of decompression and he will do a Gastrografin trial to evaluate for bowel patency. Patient verbalized understanding, all questions and concerns addressed at the bedside today. Vitals/I&O/Wt Last Vital Signs Temp 98.3 F 01/07/25 04:00 Pulse 90 01/07/25 04:00 Resp 18 01/07/25 04:00 BP 176/75 01/07/25 04:00 Pulse Ox 90 01/07/25 04:00 O2 Del Method Nasal Cannula 01/07/25 04:00 O2 Flow Rate 2 01/07/25 04:00 01/06/25 01/07/25 01/07/25 22:59 06:59 14:59 Intake Total 1000 / 2000 964.583 / 2964.583 Output Total 600 / 600 470 / 1070 Balance 400 / 1400 494.583 / 1894.583 Weight last 48 hrs Weight 69.853 kg Weight 69.853 kg Weight 70.216 kg Weight 66.678 kg Physical Exam 2 Const: COMMON NORMALS: patient oriented x3, healthy appearing and well nourished HENMT: COMMON NORMALS: normocephalic, Normal external nose present and moist oral mucous membranes HEAD & SCALP: normocephalic NOSE: Normal external nose present Eye: COMMON NORMALS: Equal, round and reactive pupils present PUPIL: Yes Equal, round and reactive pupils present Resp: COMMON NORMALS: normal respiratory effort and clear to auscultation bilaterally AUSCULTATION: clear to auscultation bilaterally Cardio: COMMON NORMALS: regular rate, regular rhythm, S1 normal heart sound present and S2 normal heart sound present RATE: regular rate RHYTHM: r egular rhythm HEART SOUNDS: S1 normal heart sound present and S2 normal heart sound present GI: COMMON NORMALS: Soft to palpation AUSCULTATION: Yes normoactive bowel sounds PALPATION: Yes Soft to palpation and Yes Tenderness to palpation present (GI) (Generalized) Extremity: COMMON NORMALS: normal to inspection and full ROM Neuro: COMMON NORMALS: patient oriented x3 and CN's II-XII intact bilaterally Psych: COMMON NORMALS: mental status grossly normal, cooperative, normal affect and speech normal SPEECH: Yes normal speech Skin: COMMON NORMALS: no rashes or lesions noted and turgor normal GENERAL SKIN EXAM: no rashes or lesions noted and turgor normal Data 01/07/25 02:48 01/07/25 02:48 A&P Assessment and plan 1. Small bowel obstruction: 2. BROOKLYNN (acute kidney injury): 3. Hypertension: 4. Hyperlipidemia: 5. Atrial fibrillation: 6. Insomnia: 7. Depression: Plan: Small bowel obstruction - NPO - NG Tube in place - Greatly appreciate general surgical consultation and management with Dr. Garcia - Conservative management for now Acute kidney injury - Admitting Cr 1.7, now 1.2 - Cntinue Gentle IV fluid hydration with NS KCL 20 mEq at 100mL/hr - Renally dose medications - Avoid nephrotoxic agents - Monitor creatinine Hypertension - Holding amlodipine due to NPO - PRN IV hydralazine for SBP >180 Hyperlipidemia - Holding Atorvastatin while NPO Atrial fibrillation - Rate controlled - Holding Eliquis - SQ lovenox therapeutic dosing, can be held if surgical interventions needed Insomnia - supportive measures Depression Anxiety - Holding oral medications - PRN Ativan VTE PPx: SCDs, SQ Lovenox GI PPx: PPI CODE STATUS: Full code PDMP PDMP Reviewed: Not Reviewed Attestations 2 Medical Necessity Statement*: Requires inpatient hospitalization crossing 2 midnights for management of small bowel obstruction, acute kidney injury with general surgical consultation and potential surgical interventions, NG tube with continued bowel decompression, continued IV fluid hydration and medical management. Coding Level of Care Code 76651 Diagnoses Small bowel obstruction K56.609 BROOKLYNN (acute kidney injury) N17.9 Hypertension I10 Hyperlipidemia E78.5 Atrial fibrillation I48.91 Insomnia G47.00 Depression F32.A
[2025-01-07 08:00] VITALS: BP 172/66; PULSE 78; RESP 20; TEMP 36.6; O2SAT 95
[2025-01-07] MEDS: pantoprazole 40 mg SDV IVP (09:23)
[2025-01-07 10:53] VITALS: BP 195/68; PULSE 88; RESP 18; TEMP 37.2; O2SAT 93
--- NOTE | 2025-01-07 14:45 | PM.MISC ---
Miscellaneous Note Purpose of Documentation: Update on patient care Note: Angio but appears to continue to be high about 100 cc/h since the last time I saw her. She does not have any significant abdominal pain and is less distended endorses passing some gas. The plan will be continued decompression tomorrow morning we will proceed with a Gastrografin trial.
[2025-01-07 15:58] VITALS: BP 165/83; PULSE 86; RESP 18; TEMP 37.3; O2SAT 91
[2025-01-07 20:00] VITALS: BP 180/77; PULSE 91; RESP 18; TEMP 36.8; O2SAT 92
[2025-01-08] VITALS (20 sets, daily range): BP systolic 99–198; BP diastolic 43–80; PULSE 79–91; RESP 16–20; TEMP 36.5–36.9; O2SAT 91–100; BMI 24.8
[2025-01-08] MEDS: sodium chlor 0.9% + KCl 20 mEq 20 MEQ/1,000 ML BAG 125 MEQ IV ×3 (03:48→20:40)
[2025-01-08 05:35] LABS: Hematocrit 39.8 % (36-47); Hemoglobin 12.70 g/dL (11.27-16.99); Mean Corpuscular HGB Conc 31.9 g/dL (30-55); Mean Corpuscular Hemoglobin 32.6 pg (27-33); Mean Corpuscular Volume 102.3 fl (85-98); Nucleated Red Blood Cells % 0 %; Platelet Count 203 10^3/cmm (157-399); Red Blood Count 3.89 10^6/uL (3.85-5.65); White Blood Count 7.69 10^3/uL (3.29-11.43)
[2025-01-08 05:54] LABS: Lactate (Lactic Acid level) 1.0 mmol/L (0.5-2.2)
[2025-01-08 05:59] LABS: Alanine Aminotransferase 10 U/L (0-33); Albumin Level 3.4 g/dL (3.5-5.2); Alkaline Phosphatase 102 U/L (35-105); Anion Gap 15.1 (5-19); Aspartate Amino Transferase 15 U/L (0-32); Blood Urea Nitrogen 22 mg/dL (8-23); Calcium 8.7 mg/dL (8.5-10.5); Carbon Dioxide 22 mmol/L (22-29); Chloride 107 mmol/L (98-107); Globulin 2.8 g/dL (1.3-4.6); Glucose 86 mg/dL (65-115); Magnesium 1.8 mg/dL (1.7-2.3); Osmolality Calculated 293 mOsm/kg (285-295); Potassium 4.1 mmol/L (3.5-5.1); Sodium 140 mmol/L (136-145); Total Protein 6.2 g/dL (6.6-8.7)
--- NOTE | 2025-01-08 07:36 | P.PN_ITS ---
Subjective 2 Subjective: Patient is a very pleasant 79-year-old female seen and examined at bedside on hospital rounds today. Patient sitting up in bed with mild back pain originally with no abdominal pain however after Gastrografin introduced into NG tube patient stated that she felt bloated with abdominal pain all over. Patient denies other new symptoms. Will await SBFT results, continued inpatient interventions under the direction of general surgeon . Improved creatinine 1.0, will continue IV fluid hydration given patient's n.p.o. status. Patient's lovenox held currently. All questions and concerns addressed with patient during examination today. Vitals/I&O/Wt Last Vital Signs Temp 98.2 F 01/08/25 07:23 Pulse 83 01/08/25 07:23 Resp 18 01/08/25 07:23 BP 198/74 01/08/25 07:23 Pulse Ox 94 01/08/25 07:23 O2 Del Method Room Air 01/08/25 07:23 O2 Flow Rate 2 01/07/25 04:00 01/07/25 01/08/25 01/08/25 22:59 06:59 14:59 Intake Total 1000 / 2626.699 7971 / 2977.083 Output Total 350 / 700 1900 / 2600 Balance 650 / 1277.083 -900 / 377.083 Weight last 48 hrs Weight 69.853 kg Weight 69.853 kg Weight 69.853 kg Weight 70.216 kg Physical Exam 2 Const: COMMON NORMALS: patient oriented x3, healthy appearing and well nourished HENMT: COMMON NORMALS: normocephalic, Normal external nose present and moist oral mucous membranes HEAD & SCALP: normocephalic NOSE: Normal external nose present Eye: COMMON NORMALS: Equal, round and reactive pupils present PUPIL: Yes Equal, round and reactive pupils present Resp: COMMON NORMALS: normal respiratory effort and clear to auscultation bilaterally AUSCULTATION: clear to auscultation bilaterally Cardio: COMMON NORMALS: regular rate, regular rhythm, S1 normal heart sound present and S2 normal heart sound present RATE: regular rate RHYTHM: r egular rhythm HEART SOUNDS: S1 normal heart sound present and S2 normal heart sound present GI: AUSCULTATION: Yes Hypoactive bowel sounds present PALPATION: Yes Tenderness to palpation present (GI) (Generalized) OTHER: Abdomen with mild distention, generalized tenderness but no rebound tenderness or guarding. Extremity: COMMON NORMALS: normal to inspection and full ROM Neuro: COMMON NORMALS: patient oriented x3 and CN's II-XII intact bilaterally Psych: COMMON NORMALS: mental status grossly normal, cooperative, normal affect and speech normal SPEECH: Yes normal speech Skin: COMMON NORMALS: no rashes or lesions noted and turgor normal GENERAL SKIN EXAM: no rashes or lesions noted and turgor normal Data 01/08/25 05:20 01/08/25 05:20 A&P Assessment and plan 1. Small bowel obstruction: 2. BROOKLYNN (acute kidney injury): 3. Hypertension: 4. Hyperlipidemia: 5. Atrial fibrillation: 6. Insomnia: 7. Depression: Plan: Small bowel obstruction - NPO - NG Tube in place - Greatly appreciate general surgical consultation and management with Dr. Garcia - Conservative management for now Acute kidney injury, resolved - Admitting Cr 1.7, now 1.0 - Cntinue Gentle IV fluid hydration with NS KCL 20 mEq at 100mL/hr - Renally dose medications - Avoid nephrotoxic agents - Monitor creatinine Hypertension - Holding amlodipine due to NPO - PRN IV hydralazine for SBP >180 Hyperlipidemia - Holding Atorvastatin while NPO Atrial fibrillation - Rate controlled - Holding Eliquis - SQ lovenox therapeutic dosing, held today in case of surgical intervention needs Insomnia - supportive measures Depression Anxiety - Holding oral medications - PRN Ativan VTE PPx: SCDs, SQ Lovenox GI PPx: PPI CODE STATUS: Full code PDMP PDMP Reviewed: Not Reviewed Attestations 2 Medical Necessity Statement*: Requires inpatient hospitalization crossing 2 midnights for management of small bowel obstruction, acute kidney injury with general surgical consultation and potential surgical interventions, NG tube with continued bowel decompression, continued IV fluid hydration and medical management. Coding Level of Care Code 37852 Diagnoses Small bowel obstruction K56.609 BROOK[place]NN (acute kidney injury) N17.9 Hypertension I10 Hyperlipidemia E78.5 Atrial fibrillation I48.91 Insomnia G47.00 Depression F32.A
--- NOTE | 2025-01-08 07:47 | P.PN_ITS ---
Subjective 2 Subjective: 79-year-old female with SBO. No acute e vents overnight. Still putting good amount on the NG tube but she endorses no abdominal pain and according to the patient has been passing gas Vitals/I&O/Wt Last Vital Signs Temp 98.2 F 01/08/25 07:23 Pulse 83 01/08/25 07:23 Resp 18 01/08/25 07:23 BP 198/74 01/08/25 07:23 Pulse Ox 94 01/08/25 07:23 O2 Del Method Room Air 01/08/25 07:23 O2 Flow Rate 2 01/07/25 04:00 01/07/25 01/08/25 01/08/25 22:59 06:59 14:59 Intake Total 1000 / 8134.870 5601 / 2977.083 Output Total 350 / 700 1900 / 2600 Balance 650 / 1277.083 -900 / 377.083 Weight last 48 hrs Weight 154 lb Weight 154 lb Weight 154 lb Weight 154 lb 12.8 oz Physical Exam 2 GI: OTHER: Her abdominal examination is benign the abdomen is soft is nontender nondistended the bowel sounds are decreased. Data 01/08/25 05:20 01/08/25 05:20 A&P Assessment and plan 1. Small bowel obstruction: Plan: At this point the next step will be to proceed with a Gastrografin trial. Depending on the results of the Gastrografin trial we will have to decide on the next step for this patient. She shows understanding and agrees with the plan. I have held her Lovenox today until we have the results of the Gastrografin trial in the case that we need to proceed with surgery. She is otherwise feeling well. Gastrografin was given and first x-ray will be around noon. PDMP PDMP Reviewed: Not Reviewed Attestations 2 Medical Necessity Statement*: Per medical team Coding Level of Care Code Acute Code for Chg Fwd Diagnoses Small bowel obstruction K56.609
[2025-01-08] MEDS: morphine 4 mg/mL SDV 1 mL 2 MG IVP ×2 (09:10→17:38)
[2025-01-08] MEDS: pantoprazole 40 mg SDV IVP (10:29)
--- NOTE | 2025-01-08 11:38 | XR_ITS ---
WS: [id number] XR KUB portable [id number] REASON FOR EXAM: follow up 4 hours after gastrografin administration. FINDINGS: Water-soluble contrast demonstrates significant distention of the stomach. Multiple significantly dilated small bowel loops (4.8 cm diameter) are collected in the central abdomen. No opacification of distal small bowel or colon. XR/XR KUB portable 40724 IMPRESSION: Proximal small bowel obstruction similar to CT scan of 01/06/2025.
--- NOTE | 2025-01-08 13:17 | PM.MISC ---
Miscellaneous Note Purpose of Documentation: Update on patient care Note: First x-ray was obtained at noon, unfortunately there is no progression of the small bowel obstruction and the bowel loops are still dilated to 4.8 cm, patient has become more distended no nausea or vomit yet. NG tube was connected back to suction at this time I have discussed with the patient the need for surgery. I have discussed with the patient the possibility of a exploratory laparoscopy, possible laparotomy possible bowel resection and ostomy creation. I discussed all risk benefits of the procedure including the risk of injury to the structures around including the small bowel: Great vessels ureter and bladder, need for additional interventions, hernia, enterotomy, fistula, bowel leakage, sepsis, , need for open abdomen. After discussion of all risk benefits as documented patient has decided to proceed to the OR. Procedure will be done this afternoon as soon as the OR is available.
--- NOTE | 2025-01-08 13:19 | ANES.PREANE2 ---
Pre-Anesthetic Assessment Height/Weight: Height 5 ft 6 in Weight 154 lb Temp Pulse Resp BP Pulse Ox O2 Del Method O2 Flow Rate 98.1 F 87 18 186/80 93 Room Air 2 01/08/25 11:06 01/08/25 11:06 01/08/25 11:06 01/08/25 07:57 01/08/25 11:06 01/08/25 11:06 01/07/25 04:00 Preop Diagnosis: Small bowel obstruction Operation Date: 01/08/25 14:00 Proposed Procedures p Laparoscopy(Not Applicable) - Nikko Garcia MD Was Beta Suman taken within 24 hours: N/A Was Clonidine taken within 24 hours: N/A Last intake: Intake Last Liquid Date 01/08/25 Last Liquid Time 08:00 Last Solid Date 01/06/25 Last Solid Time 19:00 Social Tobacco and No alcohol Smokes occasionally she states Exam alert, oriented x 3, clear to auscultation bilaterally and regular rate & rhythm Airway Submandibular: within normal limits Cervical ROM: within normal limits Mallampati: Class III Dentition: false Anesthetic Plan ASA status: 3 Anesthesia: General Other: Patient additionally admitted on 01/06/2025 for abdominal pain and vomiting. Initial CT scan showing small bowel obstruction with possible internal hernia. NG in place, patient states that she has had no food or water for the past 3 days History of hypertension on losartan and amlodipine Prior A-fib on chronic Eliquis. Eliquis last taken 01/06/2025 Labs reviewed from today and acceptable for procedure Negative stress test in February 2024 Plan for GETA with RSI Medications/Allergies Home Medications ?Medication ?Instructions ?Recorded ?Confirmed ?Last Taken ?Type losartan 100 mg tablet 100 mg PO DAILY #90 tabs 02/20/24 01/06/25 01/03/25 Rx amlodipine 10 mg tablet 10 mg PO DAILY #30 tabs 04/03/24 01/06/25 01/03/25 Rx apixaban 5 mg tablet (Eliquis) 5 mg PO BID@0900,2100 #60 tabs 09/24/24 01/06/25 01/06/25 Rx clonazepam 1 mg tablet 1 mg PO BID #60 tabs 11/25/24 01/06/25 01/06/25 Rx hydrocodone 5 mg-acetaminophen 325 1 tab PO Q8H PRN pain 2 weeks #30 12/07/24 01/06/25 Unknown Rx mg tablet tabs gabapentin 100 mg capsule See Rx Instructions .Route 01/04/25 01/06/25 01/03/25 Rx .COMPLEX #150 caps atorvastatin 10 mg tablet 10 mg PO QPM 01/06/25 01/06/25 01/03/25 History Allergies Allergy/AdvReac Type Severity Reaction Status Date / Time codeine Allergy Severe Unknown Verified 09/24/24 15:44 sulfamethoxazole (From Allergy Severe Unknown Verified 09/24/24 15:44 Bactrim) trimethoprim (From Bactrim) Allergy Severe Unknown Verified 09/24/24 15:44 carvedilol (From Coreg) Allergy Intermediate bradycardia Verified 09/24/24 15:44 escitalopram (From Lexapro) Allergy Intermediate headaches Verified 09/24/24 15:44 methylphenidate (From Allergy Mild side Verified 09/24/24 15:44 Ritalin) effects duloxetine (From Cymbalta) Allergy unknown Verified 09/24/24 15:44 trazodone AdvReac Severe confusion Verified 09/24/24 15:44 atorvastatin AdvReac Intermediate myalgias Verified 09/24/24 15:44 cyclobenzaprine (From AdvReac Intermediate hallucinati Verified 09/24/24 15:44 Flexeril) ons levofloxacin (From Levaquin) AdvReac Intermediate hands felt Verified 09/24/24 15:44 on fire Current Medications Generic Name Dose Route Start Last Admin Trade Name Freq PRN Reason Stop Dose Admin Enoxaparin Sodium 70 mg 01/06/25 13:00 01/07/25 12:58 Enoxaparin 80 Mg/0.8 Ml Syringe SUBCUT 70 mg On Hold: 01/08/25 07:48 Q24H TAI Administration Potassium Chloride/Sodium Chloride 20 meq in 1,000 mls @ 125 mls/hr 01/06/25 10:15 01/08/25 10:29 Sodium Chlor 0.9% + Kcl 20 Meq IV 125 mls/hr .Q8H TAI Administration Morphine Sulfate 2 mg 01/08/25 08:32 01/08/25 09:10 Morphine 4 Mg/Ml Sdv 1 Ml IVP 2 mg Q4H PRN Administration SEVERE PAIN Pantoprazole Sodium 40 mg 01/06/25 10:15 01/08/25 10:29 Pantoprazole 40 Mg Sdv IVP 40 mg Q24H TAI Administration Phenol 5 spray 01/06/25 10:50 01/06/25 17:21 Phenol Oral Kidder 177 Ml MUCOUS MEM 5 spray Q2H PRN Administration SORE THROAT PFSH Anesthesia Medical History (Updated 01/06/25 @ 10:00 by Nikko Garcia MD) Coronary artery disease Insomnia Chronic back pain Depression Hyperlipidemia Hypertension Family History Other CAD (coronary artery disease) Social History Smoking and tobacco/nicotine status: never used tobacco/nicotine Alcohol intake: never Substance/Drug Use: never Caregiver/support person: Yes Lives independently: Yes Housing: House Current occupational status: retired Data Anesthesia 01/08/25 05:20 01/08/25 05:20 Short CBC 01/07/25 01/08/25 Range/Units 02:48 05:20 WBC 8.89 7.69 (3.29-11.43) 10^3/uL Hgb 12.60 12.70 (11.27-16.99) g/dL Hct 38.4 39.8 (36-47) % MCV 101.1 H 102.3 H (85-98) fl Plt Count 230 203 (157-399) 10^3/cmm Neut % (Auto) 68.9 69.2 % Neut # (Auto) 6.11 5.33 (1.8-7.7) 10^3/uL BMP 01/07/25 01/08/25 02:48 05:20 Sodium 140 140 Potassium 4.2 4.1 Chloride 104 107 Carbon Dioxide 26 22 BUN 30 H 22 Creatinine 1.2 H 1.0 H Glucose 100 86 Calcium 8.5 8.7 Liver Function 01/07/25 01/08/25 Range/Units 02:48 05:20 Total Bilirubin 0.8 1.3 H (0.15-1.2) mg/dL AST 15 15 (0-32) U/L ALT 10 10 (0-33) U/L Alkaline Phosphatase 110 H 102 (35-105) U/L Albumin 3.5 3.4 L (3.5-5.2) g/dL Cardiac Studies: Echocardiogram 01/09/25 Sestamibi Stress Test (Cardiology) 03/01/24
[2025-01-08] MEDS: piperacillin-tazobactam 3.375 GM in sodium chloride 0.9% (plus) 50 ML IV (14:08)
--- NOTE | 2025-01-08 16:22 | PM.OP ---
Operative Report Date of procedure: January 08, 2025 Pre-op diagnosis: Small bowel obstruction Post-op diagnosis: Small bowel obstruction due to internal hernia Post-op findings: In the mid jejunum a loop of bowel had twisted over it so mesentery causing an apparent internal hernia, the syllable bowel was untwisted thus releasing the hernia, the bowel was congested but have peristalsis, no resection was done Procedure done: Exploratory laparotomy, reduction of internal hernia Specimens removed/disposition: none Surgeon: Nikko Garcia MD Remote Encoding Operations Supervisor: CATRACHO OR STaff Estimated blood loss: 20 Complications: none apparent Brief History: This is a 79-year-old female who presented to the hospital with a small bowel obstruction due to a possible internal hernia. Initial nonoperative management was unsuccessful to relieve obstruction and therefore we proceeded to the OR for laparotomy Procedure: Patient was brought into the OR, she was placed in a supine position. General anesthesia was given. The abdomen was prepped and draped in the usual sterile fashion. Due to severe distention as well as visible bowel loops from the outside of the abdomen I decided to proceed with laparotomy rather than laparoscopy. A 15 cm midline incision was made, the incision was carried down all the way to the fascia once the fascia was visualized I elevated the fascia with Moy's and then I proceeded to open the fascia with electrocautery, immediate entry into the abdominal cavity was achieved. A large Thomas wound retractor was placed. The bowel was eviscerated, no significant adhesions were noted from the bowel to the abdominal wall. I started running the bowel from the ligament of Treitz the bowel was very distended when I got to the mid jejunum it appeared to twist over it so meso, it was difficult to pull this loop of bowel lab and therefore I decided to start running it back from the level of the terminal ileum once I get to the same area of obstruction with gentle pull I was able to unravel an internal hernia causing the mid jejunum by the bowel twisting over to its own mesentery. A segment of about 4 cm of the mid jejunum appears congested, the mid had some markings in the area where it had twisted but otherwise appeared healthy. I saw the bowel in warm fluid and despite being congested I was able to visualize very good peristalsis indicating viability of the bowel. I then proceeded to milk back some fluids from the distended intestine into the stomach and displayed back suction via NG tube. The position of the NG tube was also verified and the NG tube was secured in place. A total of 1.1 L of bilious fluid was evacuated in this way. I then proceeded to run the bowel again from the ligament of Treitz all the way to the cecum showing no evidence of additional significant pathology of obstruction, the mid jejunum portion that appeared congested show significant improvement in appearance and continuous peristalsis. I evaluated the colon and it appeared healthy no evidence of pathology at the level of the ascending transverse descending or sigmoid colon, the pelvis showed no evidence of additional pathology. I then placed a 19 [place] Erick drain in the pelvis and delivered to the right lower quadrant incision. The drain was fixed with #3-0 nylon. At this point the abdomen was washed out with about 4 L of warm saline. The abdomen was then closed in layers using #0 PDS suture for the fascia #3-0 Vicryl for the subcutaneous tissue joanne for the skin. A danette dressing was applied. At the end of the procedure all counts were correct, the patient tolerated well the procedure was transferred to the PACU in stable condition.
--- NOTE | 2025-01-08 16:25 | ANES.PROC ---
Anesthesia Procedures Procedure/Date: 01/08/25 Bilateral tap block for postoperative pain control Nerve Block ^: Nerve Block 1: Main Anesthesia: general anesthesia Time Out Performed: Yes Consent: requested by attending/covering physician and from patient Laterality: Left (Bilateral) Nerve block location: other (TAP) Anesthesia monitors applied: pulse oximetry, EKG, BP cuff and oxygen Nerve block position: supine Anesthetic Used: other (ropivacaine 0.2%) Amount of anesthesia used (mL): 60 Ultrasound used to: recognize landmarks Nerve Stimulator Used?: No Interscalene/Femoral BLK: other needle (pjunk 4inch) Injection: neg aspiration of heme Patient Tolerated Procedure: well Complications: none
[2025-01-08] MEDS: ondansetron 2 mg/ML SDV 2 mL 4 MG IVP (16:30)
[2025-01-08] MEDS: metoclopramide 5 mg/mL SDV 2 mL 10 MG IVP (16:45)
[2025-01-08] MEDS: acetaminophen 1,000 MG/100 ML PIGGYBACK 400 MG IV (18:23)
[2025-01-08] MEDS: LORazepam 2 mg/mL INJ 1 mL 1 MG IVP (20:45)
[2025-01-09] VITALS (8 sets, daily range): BP systolic 131–183; BP diastolic 64–82; PULSE 75–85; RESP 16–18; TEMP 36.7–36.9; O2SAT 92–96
[2025-01-09] MEDS: acetaminophen 1,000 MG/100 ML PIGGYBACK 400 MG IV ×2 (01:16→08:44)
[2025-01-09] MEDS: sodium chlor 0.9% + KCl 20 mEq 20 MEQ/1,000 ML BAG 125 MEQ IV ×3 (01:24→23:40)
[2025-01-09 05:58] LABS: Hematocrit 37.5 % (36-47); Hemoglobin 11.50 g/dL (11.27-16.99); Mean Corpuscular HGB Conc 30.7 g/dL (30-55); Mean Corpuscular Hemoglobin 32.6 pg (27-33); Mean Corpuscular Volume 106.2 fl (85-98); Nucleated Red Blood Cells % 0 %; Platelet Count 198 10^3/cmm (157-399); Red Blood Count 3.53 10^6/uL (3.85-5.65); White Blood Count 7.29 10^3/uL (3.29-11.43)
[2025-01-09 06:22] LABS: Alanine Aminotransferase 8 U/L (0-33); Albumin Level 3.0 g/dL (3.5-5.2); Alkaline Phosphatase 75 U/L (35-105); Anion Gap 17.4 (5-19); Aspartate Amino Transferase 14 U/L (0-32); Blood Urea Nitrogen 24 mg/dL (8-23); Calcium 7.9 mg/dL (8.5-10.5); Carbon Dioxide 16 mmol/L (22-29); Chloride 118 mmol/L (98-107); Globulin 2.1 g/dL (1.3-4.6); Glucose 79 mg/dL (65-115); Magnesium 1.9 mg/dL (1.7-2.3); Osmolality Calculated 307 mOsm/kg (285-295); Potassium 4.4 mmol/L (3.5-5.1); Sodium 147 mmol/L (136-145); Total Protein 5.1 g/dL (6.6-8.7)
[2025-01-09 06:23] LABS: Lactate (Lactic Acid level) 0.6 mmol/L (0.5-2.2)
--- NOTE | 2025-01-09 07:14 | P.PN_ITS ---
Subjective 2 Subjective: Patient is doing well, she is postoperative day 1 status post exploratory laparotomy and reduction of internal hernia. She is doing very well no significant abdominal pain NG tube is connected to suction and has put out about 500 cc of bilious fluid. Has not passed gas yet. Vitals/I&O/Wt Last Vital Signs Temp 98.1 F 01/09/25 07:12 Pulse 75 01/09/25 07:12 Resp 16 01/09/25 07:12 BP 163/66 01/09/25 07:12 Pulse Ox 95 01/09/25 07:12 O2 Del Method Nasal Cannula 01/09/25 07:12 O2 Flow Rate 2 01/07/25 04:00 01/08/25 01/09/25 01/09/25 22:59 06:59 14:59 Intake Total 2100 / 2985.417 691.667 / 3677.084 Output Total 690 / 690 150 / 840 Balance 1410 / 2295.417 541.667 / 2837.084 Weight last 48 hrs Weight 166 lb 5 oz Weight 154 lb Physical Exam 2 GI: OTHER: Benign abdominal exam abdomen is soft nondistended, surgical incisions covered with dressing. Urinary Catheter Management: Drew: Cath Placed During This Visit: yes Reason for Continuing Indwelling Catheter: Required Immobilization for Trauma or Surgery or Anesthesia Urinary Catheter Date of Insertion: 01/08/25 Urinary Catheter Time of Insertion: 15:00 Data 01/09/25 05:46 01/09/25 05:46 A&P Assessment and plan 1. Small bowel obstruction: Plan: Patient showing very good progression from the surgical standpoint. I think it will take at least 24 to 48 hours for bowel function to start to improve as there was significant proximal dilation of the bowel loops and the area of internal hernia appear pretty irritated. We will continue decompression until the patient is passing gas. I have encouraged her to ambulate the NG tube can be clamped for ambulation. She has a Drew catheter that can be removed when she is ambulating consistently. RAFFY drain is in place the output is serosanguineous 240 over the last 24 hours.I will add Zosyn for the next 48 hours just to prevent bacterial translocation in the bowel due to the previous obstruction once she has adequate advancement of bowel function I will discontinue it. I would recommend that we continue to hold her therapeutic Lovenox today, she can get DVT prophylaxis as guided by medical team. PDMP PDMP Reviewed: Not Reviewed Attestations 2 Medical Necessity Statement*: Patient will require at least 48 hours of postoperative management for bowel Coding Level of Care Code Acute Code for Chg Fwd Diagnoses Small bowel obstruction K56.609
--- NOTE | 2025-01-09 07:43 | P.PN_ITS ---
Subjective 2 Subjective: Patient is a very pleasant 79-year-old female seen and examined at bedside on hospital rounds this morning. Patient sitting up in bed with NG tube in place, continues significant amount of drainage. Patient states she has mild abdominal tenderness but bloating is gone and she feels so much relief. Patient states that she has not had a bowel movement or flatus since surgery. Patient denies new or worsening symptoms. In review of general surgical note from Dr. Garcia - he plans to continue bowel decompression until patient is passing gas. Vital signs are stable, mildly elevated blood pressure this morning. Elevated sodium 147, stable Cr 1.1. Patient will need continued inpatient interventions - discussed discharge planning with her about need for prolonged stay, she is disappointed but agreeable to continued interventions. Vitals/I&O/Wt Last Vital Signs Temp 98.1 F 01/09/25 07:12 Pulse 75 01/09/25 07:12 Resp 16 01/09/25 07:12 BP 163/66 01/09/25 07:12 Pulse Ox 95 01/09/25 07:12 O2 Del Method Nasal Cannula 01/09/25 07:12 O2 Flow Rate 2 01/07/25 04:00 01/08/25 01/09/25 01/09/25 22:59 06:59 14:59 Intake Total 2100 / 2985.417 691.667 / 3677.084 Output Total 690 / 690 490 / 1180 Balance 1410 / 2295.417 201.667 / 2497.084 Weight last 48 hrs Weight 75.438 kg Weight 69.853 kg Physical Exam 2 Const: COMMON NORMALS: patient oriented x3, healthy appearing and well nourished HENMT: COMMON NORMALS: normocephalic, Normal external nose present and moist oral mucous membranes HEAD & SCALP: normocephalic NOSE: Normal external nose present Eye: COMMON NORMALS: Equal, round and reactive pupils present PUPIL: Yes Equal, round and reactive pupils present Resp: COMMON NORMALS: normal respiratory effort and clear to auscultation bilaterally AUSCULTATION: clear to auscultation bilaterally Cardio: COMMON NORMALS: regular rate, regular rhythm, S1 normal heart sound present and S2 normal heart sound present RATE: regular rate RHYTHM: r egular rhythm HEART SOUNDS: S1 normal heart sound present and S2 normal heart sound present GI: AUSCULTATION: Yes Hypoactive bowel sounds present PALPATION: Yes Tenderness to palpation present (GI) (Generalized) OTHER: Abdomen with improved distention, generalized tenderness, binder in place. Extremity: COMMON NORMALS: normal to inspection and full ROM Neuro: COMMON NORMALS: patient oriented x3 and CN's II-XII intact bilaterally Psych: COMMON NORMALS: mental status grossly normal, cooperative, normal affect and speech normal SPEECH: Yes normal speech Skin: COMMON NORMALS: no rashes or lesions noted and turgor normal GENERAL SKIN EXAM: no rashes or lesions noted and turgor normal Urinary Catheter Management: Drew: Cath Placed During This Visit: yes Reason for Continuing Indwelling Catheter: Required Immobilization for Trauma or Surgery or Anesthesia Urinary Catheter Date of Insertion: 01/08/25 Urinary Catheter Time of Insertion: 15:00 Data 01/09/25 05:46 01/09/25 05:46 A&P Assessment and plan 1. Small bowel obstruction: 2. BR[place]NN (acute kidney injury): 3. Hypertension: 4. Hyperlipidemia: 5. Atrial fibrillation: 6. Insomnia: 7. Depression: Plan: Small bowel obstruction S/p exploratory laparotomy and reduction of internal hernia 01/08/25 - NPO - NG Tube in place - Greatly appreciate general surgical consultation and management with Dr. Garcia - Continue bowel decompression until return of flatus Acute kidney injury, resolved - Admitting Cr 1.7, now 1.4 - Cntinue Gentle IV fluid hydration with NS KCL 20 mEq at 100mL/hr - Renally dose medications - Avoid nephrotoxic agents - Monitor creatinine Hypertension - Holding amlodipine due to NPO - PRN IV hydralazine for SBP >180 Hyperlipidemia - Holding Atorvastatin while NPO Atrial fibrillation - Rate controlled - Holding Eliquis - SQ lovenox therapeutic dosing, held yesterday for surgery, will discuss with on resuming Insomnia - supportive measures Depression Anxiety - Holding oral medications - PRN Ativan VTE PPx: SCDs, SQ Lovenox GI PPx: PPI CODE STATUS: Full code PDMP PDMP Reviewed: Not Reviewed Attestations 2 Medical Necessity Statement*: Requires continued inpatient hospitalization crossing 2 midnights for management of small bowel obstruction and at least 48hrs more s/p bowel surgery, NG tube with continued bowel decompression, continued IV fluid hydration and medical management. Coding Level of Care Code Acute Code for Chg Fwd Diagnoses Small bowel obstruction K56.609 BR[place]NN (acute kidney injury) N17.9 Hypertension I10 Hyperlipidemia E78.5 Atrial fibrillation I48.91 Insomnia G47.00 Depression F32.A
[2025-01-09] MEDS: pantoprazole 40 mg SDV IVP (08:43)
[2025-01-09] MEDS: piperacillin-tazobactam 3.375 GM in sodium chloride 0.9% (plus) 50 ML IV ×3 (08:45→23:28)
--- NOTE | 2025-01-09 11:09 | PC.SOCIAL ---
Updated IMM Updated pt on IMM. No questions voiced. Provided pt a copy. Initialed, dated, & timed a copy & placed in chart.
[2025-01-09] MEDS: ondansetron 2 mg/ML SDV 2 mL 4 MG IVP (20:17)
[2025-01-09] MEDS: morphine 4 mg/mL SDV 1 mL 2 MG IVP (20:17)
[2025-01-10 03:52] VITALS: BP 175/77; PULSE 86; RESP 18; TEMP 36.6; O2SAT 100
[2025-01-10 06:48] VITALS: BP 190/64; PULSE 72; RESP 17; TEMP 36.6; O2SAT 98
--- NOTE | 2025-01-10 07:54 | USCV_ITS ---
Holden Joycelyn Age: 79 Gender: F : 1945 Exam Date: 01/10/2025 09:53 Ordering Phys: Lorelei Akbar NP Technologist: Exam Location: [facility] – [place] Indication: new murmur BP: 130 / 73 HR: 90 Rhythm: Sinus Technical Quality: Adequate MEASUREMENTS (Male / Female) Normal Values 2D ECHO LV Diastolic Diameter PLAX 3.1 cm 4.2 - 5.9 / 3.9 - 5.3 cm IVS Diastolic Thickness 2.0 cm 0.6 - 1.0 / 0.6 - 0.9 cm IVS Systolic Thickness 2.3 cm LVPW Diastolic Thickness 1.2 cm 0.6 - 1.0 / 0.6 - 0.9 cm LVPW Systolic Thickness 1.9 cm LVOT Diameter 2.0 cm LV Ejection Fraction 2D Teich 62.2 % LV Ejection Fraction MOD 4C 68.4 % LV Ejection Fraction MOD 2C 68.0 % LV Ejection Fraction 2C AL 67.7 % LA Diameter 3.1 cm RA Systolic Volume 4C AL 26.1 ml RA Systolic Volume 4C MOD 24.5 ml LA Sys Volume AL 27.4 cm cubed LA Sys Volume Index AL 15.0 cm cubed/m squared Aorta at Sinotubular Diameter 2.3 cm IVC Diameter 1.9 cm M-MODE LA Ao Ratio MM 1.3 AV Cusp Separation MM 2.0 cm DOPPLER AV Peak Velocity 187.0 cm/s MV Peak Velocity 138.0 cm/s MV Area PHT 6.8 cm squared Mitral E to A Ratio 0.5 TR Peak Velocity 163.0 cm/s TR Peak Gradient 10.6 mmHg TV Peak E Velocity 58.0 cm/s PV Peak Velocity 101.0 cm/s FINDINGS Left Ventricle Normal left ventricular size and systolic function, EF 60-65%. No regional wall motion abnormalities noted. Moderate to severe left ventricular hypertrophy. Grade 1 diastolic dysfunction Right Ventricle Normal in size and function Right Atrium Normal in size Left Atrium Normal in size IA Septum Grossly normal Mitral Valve Mild mitral annular calcification. Mild mitral regurgitation. Aortic Valve Aortic valve is thickened. No significant stenosis. Elevated LVOT gradient however doppler signal is not adequate. Tricuspid Valve Insufficient TR jet to calculate RVSP Pulmonic Valve Not well visualized Pericardium Normal Aorta Normal in size IVC Appears to be normal CONCLUSIONS LV systolic function is normal with EF of 60-65% Moderate to severe left ventricular hypertrophy. Grade 1 diastolic dysfunction Mild mitral regurgitation. Elevated LVOT gradient however doppler signal is not adequate. Morgan Kevin MD (Electronically Signed) Final Date: 11 January 2025 14:50 S
--- NOTE | 2025-01-10 07:58 | P.PN_ITS ---
Subjective 2 Subjective: Patient is a very pleasant 79-year-old female seen and examined at bedside on hospital rounds today. Patient sitting up in bed has had small amount of flatus, improved abdominal pain and bloating. removed NG tube and advance patient's diet to clear liquids. Discussed with , noticed patient had murmur wihtout history of murmur, pending ECHO. Will continue to monitor her progress inpatient. Will resume antihypertensives this morning as she is able to tolerate a clear liquid diet with continued surveillance. Blood pressure elevated 190/64, otherwise vital signs remained stable. Labs reviewed, WBC 10.20, creatinine 1.2, BUN 25. Discussed with patient about plans of progression, patient verbalizes understanding. Vitals/I&O/Wt Last Vital Signs Temp 97.8 F 01/10/25 06:48 Pulse 72 01/10/25 06:48 Resp 17 01/10/25 06:48 BP 190/64 01/10/25 06:48 Pulse Ox 98 01/10/25 06:48 O2 Del Method Room Air 01/10/25 06:48 O2 Flow Rate 2 01/07/25 04:00 01/09/25 01/10/25 01/10/25 22:59 06:59 14:59 Intake Total 594.167 / 1596.250 50 / 1646.250 680 / 680 Output Total 500 / 1210 300 / 1510 640 / 640 Balance 94.167 / 386.250 -250 / 136.250 40 / 40 Weight last 48 hrs Weight 74.843 kg Weight 75.438 kg Physical Exam 2 Const: COMMON NORMALS: patient oriented x3, healthy appearing and well nourished HENMT: COMMON NORMALS: normocephalic, Normal external nose present and moist oral mucous membranes HEAD & SCALP: normocephalic NOSE: Normal external nose present Eye: COMMON NORMALS: Equal, round and reactive pupils present PUPIL: Yes Equal, round and reactive pupils present Resp: COMMON NORMALS: normal respiratory effort and clear to auscultation bilaterally AUSCULTATION: clear to auscultation bilaterally Cardio: COMMON NORMALS: regular rate, regular rhythm, S1 normal heart sound present and S2 normal heart sound present RATE: regular rate RHYTHM: r egular rhythm HEART SOUNDS: S1 normal heart sound present, S2 normal heart sound present and Murmur heart sound present GI: AUSCULTATION: Yes Hypoactive bowel sounds present PALPATION: Yes Tenderness to palpation present (GI) (Generalized) OTHER: Abdomen with improved distention, generalized tenderness, binder in place. Extremity: COMMON NORMALS: normal to inspection and full ROM Neuro: COMMON NORMALS: patient oriented x3 and CN's II-XII intact bilaterally Psych: COMMON NORMALS: mental status grossly normal, cooperative, normal affect and speech normal SPEECH: Yes normal speech Skin: COMMON NORMALS: no rashes or lesions noted and turgor normal GENERAL SKIN EXAM: no rashes or lesions noted and turgor normal Urinary Catheter Management: Drew: Cath Placed During This Visit: yes Reason for Continuing Indwelling Catheter: Acute Urinary Retention or Obstruction Urinary Catheter Date of Insertion: 01/08/25 Urinary Catheter Time of Insertion: 15:00 Data 01/10/25 07:58 01/10/25 07:58 A&P Assessment and plan 1. Small bowel obstruction: 2. [place] (acute kidney injury): 3. Hypertension: 4. Hyperlipidemia: 5. Atrial fibrillation: 6. Insomnia: 7. Depression: Plan: Small bowel obstruction S/p exploratory laparotomy and reduction of internal hernia 01/08/25 - NG tube removed, advancing diet to clear liquids - Greatly appreciate general surgical consultation and management with Dr. Garcia - Continue bowel decompression until return of flatus Acute kidney injury, resolved - Admitting Cr 1.7, now 1.2 - Continue Gentle IV fluid hydration with NS KCL 20 mEq at 100mL/hr - Renally dose medications - Avoid nephrotoxic agents - Monitor creatinine Hypertension - Resume home medication amlodipine and losartan - PRN IV hydralazine for SBP >180 Hyperlipidemia - Continue atorvastatin Atrial fibrillation - Rate controlled - Holding Eliquis, resume if able to tolerate oral diet - SQ lovenox therapeutic dosing, held yesterday for surgery, will discuss with on resuming Insomnia - supportive measures Depression Anxiety - Resume home medication if able to tolerate oral diet - PRN Ativan VTE PPx: SCDs, SQ Lovenox GI PPx: PPI CODE STATUS: Full code PDMP PDMP Reviewed: Not Reviewed Attestations 2 Medical Necessity Statement*: Requires continued inpatient hospitalization crossing 2 midnights for management of small bowel obstruction status post exploratory laparotomy, advancing diet under direction of general surgeon, continued IV fluid hydration and medical management. Coding Level of Care Code 11207 Diagnoses Small bowel obstruction K56.609 [place] (acute kidney injury) N17.9 Hypertension I10 Hyperlipidemia E78.5 Atrial fibrillation I48.91 Insomnia G47.00 Depression F32.A
[2025-01-10 08:09] LABS: Hematocrit 42.2 % (36-47); Hemoglobin 13.30 g/dL (11.27-16.99); Mean Corpuscular HGB Conc 31.5 g/dL (30-55); Mean Corpuscular Hemoglobin 33.1 pg (27-33); Mean Corpuscular Volume 105.0 fl (85-98); Nucleated Red Blood Cells % 0 %; Platelet Count 212 10^3/cmm (157-399); Red Blood Count 4.02 10^6/uL (3.85-5.65); White Blood Count 10.20 10^3/uL (3.29-11.43)
[2025-01-10] MEDS: piperacillin-tazobactam 3.375 GM in sodium chloride 0.9% (plus) 50 ML IV ×3 (08:19→23:19)
[2025-01-10] MEDS: sodium chlor 0.9% + KCl 20 mEq 20 MEQ/1,000 ML BAG 125 MEQ IV (08:21)
[2025-01-10 08:32] LABS: Anion Gap 19.2 (5-19); Blood Urea Nitrogen 25 mg/dL (8-23); Calcium 8.9 mg/dL (8.5-10.5); Carbon Dioxide 18 mmol/L (22-29); Chloride 115 mmol/L (98-107); Glucose 74 mg/dL (65-115); Magnesium 2.0 mg/dL (1.7-2.3); Osmolality Calculated 309 mOsm/kg (285-295); Potassium 4.2 mmol/L (3.5-5.1); Sodium 148 mmol/L (136-145)
--- NOTE | 2025-01-10 09:11 | P.PN_ITS ---
Subjective 2 Subjective: 79-year-old female who is postoperative day 2 status post bladder laparotomy reduction of internal hernia for small bowel obstruction. She is doing very well has passed gas no significant abdominal pain, NG output has been minimal Vitals/I&O/Wt Last Vital Signs Temp 97.8 F 01/10/25 06:48 Pulse 72 01/10/25 06:48 Resp 17 01/10/25 06:48 BP 190/64 01/10/25 06:48 Pulse Ox 98 01/10/25 06:48 O2 Del Method Room Air 01/10/25 06:48 O2 Flow Rate 2 01/07/25 04:00 01/09/25 01/10/25 01/10/25 22:59 06:59 14:59 Intake Total 594.167 / 1596.250 50 / 9926.257 0632 / 1680 Output Total 500 / 1210 300 / 1510 640 / 640 Balance 94.167 / 386.250 -250 / 856.962 2566 / 1040 Weight last 48 hrs Weight 165 lb Weight 166 lb 5 oz Physical Exam 2 Narrative: Incidentally systolic murmur was heard during auscultation GI: OTHER: Benign abdominal exam the abdomen is soft nontender nondistended surgical incision was covered with dressing. Has good bowel sounds Urinary Catheter Management: Drew: Cath Placed During This Visit: yes Reason for Continuing Indwelling Catheter: Acute Urinary Retention or Obstruction Urinary Catheter Date of Insertion: 01/08/25 Urinary Catheter Time of Insertion: 15:00 Data 01/10/25 07:58 01/10/25 07:58 A&P Assessment and plan 1. Small bowel obstruction: Plan: Patient showing very good progression after surgery. No significant abdominal pain, laboratory workup shows slight increase in creatinine level to 1.2 from 1.1. Other than that she is doing fine has been passing gas and then it output has been low I remove the NG tube today we will allow her to have clears I have encouraged ambulation. Incidentally during examination I was able to hear and holosystolic murmur, I have discussed this information with medical team for possible evaluation and possible need for echo. Patient shows understanding agrees with plan if she is tolerating diet today may advance to full liquid by the afternoon and she may even be able to be discharged as early as tomorrow. PDMP PDMP Reviewed: Not Reviewed Attestations 2 Medical Necessity Statement*: Per medical Coding Level of Care Code Acute Code for Chg Fwd Diagnoses Small bowel obstruction K56.609
[2025-01-10 11:21] VITALS: BP 182/77; PULSE 80; RESP 17; TEMP 36.8; O2SAT 95
[2025-01-10] MEDS: LOSARTAN 100 MG TABLET PO (11:24)
[2025-01-10] MEDS: pantoprazole 40 mg SDV IVP (11:24)
--- NOTE | 2025-01-10 13:14 | PM.MISC ---
Miscellaneous Note Purpose of Documentation: Update on patient care Note: Doing well, tolerating diet, no significant abdominal pain, passing gas no bowel movement yet. Will stop IV fluids encourage ambulation.
[2025-01-10 17:30] VITALS: BP 173/79; PULSE 70; RESP 16; TEMP 36.7; O2SAT 96
[2025-01-10 20:32] VITALS: RESP 18
[2025-01-10] MEDS: morphine 4 mg/mL SDV 1 mL 2 MG IVP (20:32)
[2025-01-10 21:00] VITALS: BP 196/88; PULSE 68; RESP 16; TEMP 36.9; O2SAT 94
[2025-01-11] VITALS (7 sets, daily range): BP systolic 147–185; BP diastolic 54–74; PULSE 67–108; RESP 16–18; TEMP 36.6–37; O2SAT 92–97
[2025-01-11] MEDS: hyDRALAzine 20 mg/mL INJ 1 mL 10 MG IVP (00:51)
[2025-01-11] MEDS: morphine 4 mg/mL SDV 1 mL 2 MG IVP (02:54)
[2025-01-11] MEDS: LOSARTAN 100 MG TABLET PO (04:56)
[2025-01-11 05:19] LABS: Hematocrit 39.1 % (36-47); Hemoglobin 12.70 g/dL (11.27-16.99); Mean Corpuscular HGB Conc 32.5 g/dL (30-55); Mean Corpuscular Hemoglobin 32.8 pg (27-33); Mean Corpuscular Volume 101.0 fl (85-98); Nucleated Red Blood Cells % 0 %; Platelet Count 195 10^3/cmm (157-399); Red Blood Count 3.87 10^6/uL (3.85-5.65); White Blood Count 8.91 10^3/uL (3.29-11.43)
[2025-01-11 05:46] LABS: Anion Gap 15.4 (5-19); Blood Urea Nitrogen 19 mg/dL (8-23); Calcium 8.6 mg/dL (8.5-10.5); Carbon Dioxide 21 mmol/L (22-29); Chloride 111 mmol/L (98-107); Glucose 95 mg/dL (65-115); Osmolality Calculated 298 mOsm/kg (285-295); Potassium 4.4 mmol/L (3.5-5.1); Sodium 143 mmol/L (136-145)
[2025-01-11] MEDS: piperacillin-tazobactam 3.375 GM in sodium chloride 0.9% (plus) 50 ML IV ×3 (06:44→23:38)
--- NOTE | 2025-01-11 09:41 | P.PN_ITS ---
Subjective 2 Subjective: Patient is a very pleasant 79-year-old female seen and examined at bedside on hospital rounds this morning. Patient sitting up in bed stating that she has still not had a bowel movement but she has been tolerating her clear liquid diet and feels ramblings in her stomach and has no abdominal pain this morning. Vital signs are stable. WBC 8.91, sodium 143, potassium 4.4, creatinine 1.1. We will continue to advance diet under the direction of Dr. Garcia. Would expect patient to discharge in the next 24 to 48 hours if she remains medically stable. Vitals/I&O/Wt Last Vital Signs Temp 97.8 F 01/11/25 08:00 Pulse 68 01/11/25 08:00 Resp 16 01/11/25 08:00 BP 172/68 01/11/25 08:00 Pulse Ox 92 01/11/25 04:00 O2 Del Method Room Air 01/10/25 17:30 O2 Flow Rate 2 01/07/25 04:00 01/10/25 01/11/25 01/11/25 22:59 06:59 14:59 Intake Total 1530 / 3860 290 / 4150 Output Total 750 / 1790 1070 / 2860 295 / 295 Balance 780 / 2070 -780 / 1290 -295 / -295 Weight last 48 hrs Weight 74.843 kg Weight 74.843 kg Physical Exam 2 Const: COMMON NORMALS: patient oriented x3, healthy appearing and well nourished HENMT: COMMON NORMALS: normocephalic, Normal external nose present and moist oral mucous membranes HEAD & SCALP: normocephalic NOSE: Normal external nose present Eye: COMMON NORMALS: Equal, round and reactive pupils present PUPIL: Yes Equal, round and reactive pupils present Resp: COMMON NORMALS: normal respiratory effort and clear to auscultation bilaterally AUSCULTATION: clear to auscultation bilaterally Cardio: COMMON NORMALS: regular rate, regular rhythm, S1 normal heart sound present and S2 normal heart sound present RATE: regular rate RHYTHM: r egular rhythm HEART SOUNDS: S1 normal heart sound present, S2 normal heart sound present and Murmur heart sound present GI: COMMON NORMALS: Soft to palpation AUSCULTATION: Yes normoactive bowel sounds PALPATION: Yes Soft to palpation Extremity: COMMON NORMALS: normal to inspection and full ROM Neuro: COMMON NORMALS: patient oriented x3 and CN's II-XII intact bilaterally Psych: COMMON NORMALS: mental status grossly normal, cooperative, normal affect and speech normal SPEECH: Yes normal speech Skin: COMMON NORMALS: no rashes or lesions noted and turgor normal GENERAL SKIN EXAM: no rashes or lesions noted and turgor normal Urinary Catheter Management: Drew: Cath Placed During This Visit: yes, but has since been removed by the nurse Reason for Continuing Indwelling Catheter: Decision to DC Catheter Urinary Catheter Date of Insertion: 01/08/25 Urinary Catheter Time of Insertion: 15:00 Date Urinary Catheter Removed: 01/10/25 Time Urinary Catheter Discontinued: 08:00 Data 01/11/25 05:11 01/11/25 05:11 A&P Assessment and plan 1. Small bowel obstruction: 2. BR[place] (acute kidney injury): 3. Hypertension: 4. Hyperlipidemia: 5. Atrial fibrillation: 6. Insomnia: 7. Depression: Plan: Small bowel obstruction S/p exploratory laparotomy and reduction of internal hernia 01/08/25 - NG tube removed, currently on clear liquids, advancing diet under direction of general surgery - Greatly appreciate general surgical consultation and management with Dr. Garcia - Continue bowel decompression until return of flatus Acute kidney injury, resolved - Admitting Cr 1.7, now 1.1 - Completed fluid hydration yesterday - Renally dose medications - Avoid nephrotoxic agents - Monitor creatinine Hypertension - Continue home medication amlodipine and losartan - PRN IV hydralazine for SBP >180 Hyperlipidemia - Continue atorvastatin Atrial fibrillation - Rate controlled - Holding Eliquis, resume if able to tolerate oral diet - SQ lovenox therapeutic dosing, held yesterday for surgery, will discuss with on resuming Insomnia - supportive measures Depression Anxiety - Resume home medication if able to tolerate oral diet - PRN Ativan Cardiac murmur - Pending echo VTE PPx: SCDs, SQ Lovenox GI PPx: PPI CODE STATUS: Full code PDMP PDMP Reviewed: Not Reviewed Attestations 2 Medical Necessity Statement*: Requires continued inpatient hospitalization crossing 2 midnights for management of small bowel obstruction status post exploratory laparotomy, advancing diet under direction of general surgeon, and continued complex medical management. Coding Level of Care Code 55047 Diagnoses Small bowel obstruction K56.609 [place] (acute kidney injury) N17.9 Hypertension I10 Hyperlipidemia E78.5 Atrial fibrillation I48.91 Insomnia G47.00 Depression F32.A
--- NOTE | 2025-01-11 10:02 | PC.SOCIAL ---
Updated IMM Updated pt on IMM. No questions voiced. Provided pt a copy. Initialed, dated, & timed copy in chart.
--- NOTE | 2025-01-11 11:12 | P.PN_ITS ---
Subjective 2 Subjective: 29-year-old female postoperative day 3 s tatus post proctoscopy laparotomy and reduction of internal hernia for small bowel obstruction. Patient is doing well has been passing gas no significant abdominal pain, tolerating full liquid diet. Vitals/I&O/Wt Last Vital Signs Temp 97.8 F 01/11/25 08:00 Pulse 68 01/11/25 08:00 Resp 16 01/11/25 08:00 BP 172/68 01/11/25 08:00 Pulse Ox 92 01/11/25 04:00 O2 Del Method Room Air 01/10/25 17:30 O2 Flow Rate 2 01/07/25 04:00 01/10/25 01/11/25 01/11/25 22:59 06:59 14:59 Intake Total 1530 / 3860 290 / 4150 Output Total 750 / 1790 1070 / 2860 295 / 295 Balance 780 / 2070 -780 / 1290 -295 / -295 Weight last 48 hrs Weight 165 lb Weight 165 lb Physical Exam 2 GI: OTHER: The abdomen is soft nontender nondistended there is very good bowel sounds Urinary Catheter Management: Drew: Cath Placed During This Visit: yes, but has since been removed by the nurse Reason for Continuing Indwelling Catheter: Decision to DC Catheter Urinary Catheter Date of Insertion: 01/08/25 Urinary Catheter Time of Insertion: 15:00 Date Urinary Catheter Removed: 01/10/25 Time Urinary Catheter Discontinued: 08:00 Data 01/11/25 05:11 01/11/25 05:11 A&P Assessment and plan 1. Small bowel obstruction: 2. Atrial fibrillation: 3. Paroxysmal atrial fibrillation with RVR: Plan: Patient showing very good progression from the surgical standpoint. Vital signs are stable, laboratory workup is unremarkable, creatinine has been stable around 1.1 and BUN has improved. She is passing gas but no bowel movement yet, we advance her to full liquids today and we have a dose of MiraLAX to help her resuming bowel function. Once the patient has a bowel movement we will plan to advance her to a GI soft diet as tolerated and once tolerating GI soft diet she will be able to transition home. Her RAFFY drain is in place and is putting out only serous fluid. Abdominal exam is completely benign.Okay to restart anticoagulation from the surgical standpoint.All other management per medical team is appreciated PDMP PDMP Reviewed: Not Reviewed Attestations 2 Medical Necessity Statement*: Possible discharge tomorrow after confirming tolerance of GI soft diet Coding Level of Care Code Acute Code for Chg Fwd Diagnoses Small bowel obstruction K56.609 Atrial fibrillation I48.91 Paroxysmal atrial fibrillation with RVR I48.0
[2025-01-11] MEDS: pantoprazole 40 mg SDV IVP (11:15)
[2025-01-11] MEDS: polyethylene glycol 3350 Pkt 17 gm PO (11:15)
--- NOTE | 2025-01-11 16:58 | PM.MISC ---
Miscellaneous Note Purpose of Documentation: Update on patient care Note: Patient is doing well, has remained stable, passing gas but has not had a bowel movement yet. No significant abdominal pain abdominal exam is benign she has good bowel sounds.
[2025-01-12 04:08] LABS: Hematocrit 37.1 % (36-47); Hemoglobin 12.10 g/dL (11.27-16.99); Mean Corpuscular HGB Conc 32.6 g/dL (30-55); Mean Corpuscular Hemoglobin 33.0 pg (27-33); Mean Corpuscular Volume 101.1 fl (85-98); Nucleated Red Blood Cells % 0 %; Platelet Count 204 10^3/cmm (157-399); Red Blood Count 3.67 10^6/uL (3.85-5.65); White Blood Count 8.41 10^3/uL (3.29-11.43)
[2025-01-12 04:36] LABS: Anion Gap 12.7 (5-19); Blood Urea Nitrogen 17 mg/dL (8-23); Calcium 8.5 mg/dL (8.5-10.5); Carbon Dioxide 22 mmol/L (22-29); Chloride 109 mmol/L (98-107); Glucose 70 mg/dL (65-115); Magnesium 1.7 mg/dL (1.7-2.3); Osmolality Calculated 290 mOsm/kg (285-295); Potassium 3.7 mmol/L (3.5-5.1); Sodium 140 mmol/L (136-145)
[2025-01-12 05:33] VITALS: BP 175/67; PULSE 77; RESP 15; TEMP 36.9; O2SAT 95
[2025-01-12] MEDS: polyethylene glycol 3350 Pkt 17 gm PO (05:47)
[2025-01-12] MEDS: LOSARTAN 100 MG TABLET PO (05:48)
[2025-01-12] MEDS: piperacillin-tazobactam 3.375 GM in sodium chloride 0.9% (plus) 50 ML IV (06:55)
--- NOTE | 2025-01-12 07:38 | P.PN_ITS ---
Subjective 2 Subjective: 79-year-old female postoperative day 4 s tatus post exploratory laparotomy reduction internal hernia for small bowel obstruction patient is doing well, had a bowel movement this morning. No significant abdominal pain, tolerating diet. Vitals/I&O/Wt Last Vital Signs Temp 98.4 F 01/12/25 05:33 Pulse 77 01/12/25 05:33 Resp 15 01/12/25 05:33 BP 175/67 01/12/25 05:33 Pulse Ox 95 01/12/25 05:33 O2 Del Method Room Air 01/11/25 23:45 O2 Flow Rate 2 01/07/25 04:00 01/11/25 01/12/25 01/12/25 22:59 06:59 14:59 Intake Total 50 / 500 590 / 1090 Output Total 100 / 395 370 / 765 Balance -50 / 105 220 / 325 Weight last 48 hrs Weight 165 lb Weight 165 lb Physical Exam 2 GI: OTHER: Benign abdominal examination the abdomen is soft nontender nondistended, surgical incisions are healing well, RAFFY drain had serous output and was removed this morning. Bowel sounds are good. Urinary Catheter Management: Drew: Cath Placed During This Visit: yes, but has since been removed by the nurse Reason for Continuing Indwelling Catheter: Decision to DC Catheter Urinary Catheter Date of Insertion: 01/08/25 Urinary Catheter Time of Insertion: 15:00 Date Urinary Catheter Removed: 01/10/25 Time Urinary Catheter Discontinued: 08:00 Data 01/12/25 03:42 01/12/25 03:42 A&P Assessment and plan 1. Small bowel obstruction: 2. [place] (acute kidney injury): 3. Atrial fibrillation: Plan: Patient showing excellent progression, vital scan remained stable, laboratory workup is unremarkable creatinine has corrected to baseline. She is tolerating diet passing gas and had a bowel movement this morning. She is cleared to transition to the outpatient and a GI soft diet as tolerated from the general surgery standpoint. Warning signs and activity instructions have been documented in the discharge tab. She can follow-up in 2 weeks in my office for staple removal, wound care instructions have been given to the patient also. All other management per medical team is appreciated. PDMP PDMP Reviewed: Not Reviewed Attestations 2 Medical Necessity Statement*: Per medical team, Possible discharge today Coding Level of Care Code Acute Code for Chg Fwd Diagnoses Small bowel obstruction K56.609 [place] (acute kidney injury) N17.9 Atrial fibrillation I48.91
[2025-01-12 07:51] VITALS: BP 184/68; PULSE 68; RESP 14; TEMP 36.6; O2SAT 96
--- NOTE | 2025-01-12 10:15 | P.DS_ITS ---
Discharge Providers Date of Admission: 01/06/25 09:25 Date of Discharge: January 12, 2025 Attending Provider at Admission: Mino Moctezuma MD Attending Provider at Discharge: Lorelei Akbar NP Primary Care Provider: Syed Nesbitt MD Diagnoses at Discharge Discharge Diagnosis 1. Small bowel obstruction: 2. BR[place]NN (acute kidney injury): 3. Atrial fibrillation: Reason for Visit Reason for Visit: n/v/no bm movements Brief History: Admission:Joycelyn Holden is a 79 year old female who presented to the ER after having abdominal pain, nausea and vomiting consistently for the last 2 days, no bowel movement x 4 days. Patient has history of hysterectomy, cholecystectomy, no history of small bowel obstruction previous. Patient continues to endorse nausea and vomiting, denies current chest pain, shortness of breath, recent falls or injuries, dark or tarry stools, or syncope. Patient found to have small bowel obstruction, ER provider consulted general surgeon who graciously agrees to consultation. Patient has NG tube in place with feculent drainage noted. Hospital Course Hospital Course Small bowel obstruction S/p exploratory laparotomy and reduction of internal hernia 01/08/25 - NG tube removed, currently on clear liquids, advancing diet under direction of general surgery - Greatly appreciate general surgical consultation and management with Dr. Garcia - Continue bowel decompression until return of flatus Acute kidney injury, resolved - Admitting Cr 1.7, now 1.1 - Completed fluid hydration yesterday - Renally dose medications - Avoid nephrotoxic agents - Monitor creatinine Hypertension - Continue home medication amlodipine and losartan - PRN IV hydralazine for SBP >180 Hyperlipidemia - Continue atorvastatin Atrial fibrillation - Rate controlled - Holding Eliquis, resume if able to tolerate oral diet - SQ lovenox therapeutic dosing, held yesterday for surgery, will discuss with on resuming Insomnia - supportive measures Depression Anxiety - Resume home medication if able to tolerate oral diet - PRN Ativan Cardiac murmur - ECHO: LV systolic function is normal with EF of 60-65% Moderate to severe left ventricular hypertrophy. Grade 1 diastolic dysfunction Mild mitral regurgitation. Elevated LVOT gradient however doppler signal is not adequate. VTE PPx: SCDs, SQ Lovenox GI PPx: PPI CODE STATUS: Full code Patient did very well she is 4 days postoperative with exploratory laparotomy and reduction of internal hernia for small bowel obstruction, had bowel movement prior to discharge with complete resolution of abdominal pain and was tolerating diet well. General surgeon stated that patient could discharge home with GI soft diet as tolerated and follow-up with him in 2 weeks for staple remover. Patient given wound care instructions and extra dressing to change at home. Patient is prescribed Augmentin x7 days for continued GI empiric coverage and daily miralax. Patient discharges in stable condition in care of family to follow-up with primary care provider in 1 to 3 days and general surgery within 2 weeks. All questions and concerns addressed with the patient at time of discharge. Physical Exam Const: COMMON NORMALS: patient oriented x3, healthy appearing and well nouris hed HENMT: COMMON NORMALS: normocephalic, Normal external nose present and moist oral mucous membranes HEAD & SCALP: normocephalic NOSE: Normal external nose present Eye: COMMON NORMALS: Equal, round and reactive pupils present PUPIL: Yes Equal, round and reactive pupils present Resp: COMMON NORMALS: normal respiratory effort and clear to auscultation nia aterally AUSCULTATION: clear to auscultation bilaterally Cardio: COMMON NORMALS: regular rate, regular rhythm, S1 normal heart sound present and S2 normal heart sound present RATE: regular rate RHYTHM: regular rhythm HEART SOUNDS: S1 normal heart sound present, S2 normal heart sound present and Murmur heart sound present GI: COMMON NORMALS: Soft to palpation AUSCULTATION: Yes normoactive bowel sounds PALPATION: Yes Soft to palpation Extremity: COMMON NORMALS: normal to inspection and full ROM Neuro: COMMON NORMALS: patient oriented x3 and CN's II-XII intact bilaterally Psych: COMMON NORMALS: mental status grossly normal, cooperative, normal affect and speech normal SPEECH: Yes normal speech Skin: COMMON NORMALS: no rashes or lesions noted and turgor normal GENERAL SKIN EXAM: no rashes or lesions noted and turgor normal Urinary Catheter Management: Drew: Cath Placed During This Visit: yes, but has since been removed by the nurse Reason for Continuing Indwelling Catheter: Decision to DC Catheter Urinary Catheter Date of Insertion: 01/08/25 Urinary Catheter Time of Insertion: 15:00 Date Urinary Catheter Removed: 01/10/25 Time Urinary Catheter Discontinued: 08:00 Discharge Data Studies Completed and Pending Completed Studies During Hospitalization Category Date Time Status CT abdomen pelvis w con* [id number] Stat Cat Scan 01/06/25 06:50 Completed XR KUB portable [id number] Routine Exams 01/08/25 11:38 Completed XR chest 1V portable [id number] Routine Exams 01/06/25 09:53 Completed US echo complete [CV. echo complete* [id number]] Routine Ultrasound 01/10/25 07:54 Completed Pending at discharge Category Date Time Status BMP [Basic Metabolic Panel] AM LABS Lab 01/13/25 04:00 Ordered BMP [Basic Metabolic Panel] AM LABS Lab 01/14/25 04:00 Ordered CBC Auto Diff [Complete Blood Count w/Auto] AM LABS Lab 01/13/25 04:00 Ordered CBC Auto Diff [Complete Blood Count w/Auto] AM LABS Lab 01/14/25 04:00 Ordered Magnesium AM LABS Lab 01/13/25 04:00 Ordered Magnesium AM LABS Lab 01/14/25 04:00 Ordered Phosphorus AM LABS Lab 01/13/25 04:00 Ordered Phosphorus AM LABS Lab 01/14/25 04:00 Ordered Radiology Impressions Abdomen/Pelvis CT 01/06/25 06:50 IMPRESSION: 1. Small bowel obstruction with clumped dilated small bowel loops in the pelvis, suspicious for an internal hernia/closed loop obstruction. Small amount of free fluid. Possible slight decreased mural enhancement of the clumped small bowel loops in the pelvis without focal bowel wall thickening, pneumatosis, or portal venous air at this time. 2. Aneurysmal dilatation in the abdominal aorta, measuring up to 4 cm in diameter. Follow-up imaging in 1 year is recommended. 3. Right hepatic lesion measuring up to 3.3 which demonstrates heterogeneous internal enhancement. This is incompletely characterized on this single-phase exam. Further evaluation with non-emergent liver MRI is recommended. Multiple additional hepatic cysts. (Reference: Felipe) 4. There are a few scattered pulmonary nodules in the lung bases measuring less than 6 mm. For patients at low risk (minimal or absent history of smoking and of other known risk factors), no routine follow-up is indicated. For patients at high risk (history of smoking or of other known risk factors), consider optional CT Chest at 12 months (Reference: Rhona). 5. Other incidental and nonemergent findings are discussed above. COMMENTS: Consistent with the [employer]'s Incidental Findings Committee white paper (J Am Kamar Radiol 2018): Any incidental renal lesion less than 1 cm or classified as too small to characterize, or any incidental cystic renal lesion characterized as simple-appearing, is likely benign. No follow-up imaging is recommended for these lesions per consensus recommendations based on imaging criteria. REFERENCES: 1. Rhona Thompson, et al. Guidelines for Management of Incidental Pulmonary Nodules Detected on CT Images: From the Fleischner Society 2017. Radiology. 2017;284(1):228-243. 2. Felipe ARANDA, et al. Management of Incidental Liver Lesions on CT: A White Paper of the ACR Incidental Findings Committee. J Am Kamar Radiol. 2017;14(11):4187-6598. ADDENDUM: 01/06/25 0922 THIS REPORT CONTAINS FINDINGS THAT MAY BE CRITICAL TO PATIENT CARE. The findings were verbally communicated via telephone conference with MARIUM SILVA at 9:19 AM PLUMBING AND HEATING MECH[employer]IC on 01/06/2025. The findings were acknowledged and understood. Chest X-Ray 01/06/25 09:53 IMPRESSION: 1. Subdiaphragmatic gastric suction tube with the tip in the expected location of the body of the stomach. Mildly dilated small bowel loops seen in the visualized upper abdomen. 2. No acute radiographic cardiopulmonary abnormality. KUB X-Ray 01/08/25 11:38 IMPRESSION: Proximal small bowel obstruction similar to CT scan of 01/06/2025. Laboratory Results WBC 8.41 10^3/uL (3.29-11.43) 01/12/25 03:42 RBC 3.67 10^6/uL (3.85-5.65) L 01/12/25 03:42 Hgb 12.10 g/dL (11.27-16.99) 01/12/25 03:42 Hct 37.1 % (36-47) 01/12/25 03:42 MCV 101.1 fl (85-98) H 01/12/25 03:42 MCH 33.0 pg (27-33) 01/12/25 03:42 MCHC 32.6 g/dL (30-55) 01/12/25 03:42 RDW 13.2 % (12.1-15.1) 01/12/25 03:42 Plt Count 204 10^3/cmm (157-399) 01/12/25 03:42 MPV 9.8 fL (7.4-10.4) 01/12/25 03:42 Neut % (Auto) 63.6 % 01/12/25 03:42 Lymph % (Auto) 20.0 % 01/12/25 03:42 [place] % (Auto) 12.4 % 01/12/25 03:42 Eos % (Auto) 2.3 % 01/12/25 03:42 Baso % (Auto) 0.5 % 01/12/25 03:42 Neut # (Auto) 5.36 10^3/uL (1.8-7.7) 01/12/25 03:42 Lymph # (Auto) 1.7 10^3/uL (0.8-4.8) 01/12/25 03:42 [place] # (Auto) 1.0 10^3/uL (0.2-0.9) H 01/12/25 03:42 Eos # (Auto) 0.2 10^3/uL (0.0-0.8) 01/12/25 03:42 Baso # (Auto) 0.0 10^3/uL (0.0-0.1) 01/12/25 03:42 Nucleated RBC % (auto) 0 % 01/12/25 03:42 Nucleated RBCs # 0.0 /100WBC 01/12/25 03:42 Sodium 140 mmol/L (136-145) 01/12/25 03:42 Potassium 3.7 mmol/L (3.5-5.1) 01/12/25 03:42 Chloride 109 mmol/L (98-107) H 01/12/25 03:42 Carbon Dioxide 22 mmol/L (22-29) 01/12/25 03:42 Anion Gap 12.7 (5-19) 01/12/25 03:42 BUN 17 mg/dL (8-23) 01/12/25 03:42 Creatinine 1.0 mg/dL (0.5-0.9) H 01/12/25 03:42 GFR Calculation Not Reportable 01/12/25 03:42 Glucose 70 mg/dL (65-115) 01/12/25 03:42 Calculated Osmolality 290 mOsm/kg (285-295) 01/12/25 03:42 Lactic Acid 2.3 mmol/L (0.5-2.2) H 01/06/25 07:24 Lactic Acid (Sepsis) 1.4 mmol/L (0.5-2.2) 01/06/25 10:35 Lactate 0.6 mmol/L (0.5-2.2) 01/09/25 05:46 Calcium 8.5 mg/dL (8.5-10.5) 01/12/25 03:42 Phosphorus 2.6 mg/dL (2.5-4.5) 01/12/25 03:42 Magnesium 1.7 mg/dL (1.7-2.3) 01/12/25 03:42 Total Bilirubin 0.7 mg/dL (0.15-1.2) 01/09/25 05:46 AST 14 U/L (0-32) 01/09/25 05:46 ALT 8 U/L (0-33) 01/09/25 05:46 Alkaline Phosphatase 75 U/L (35-105) 01/09/25 05:46 Total Protein 5.1 g/dL (6.6-8.7) L 01/09/25 05:46 Albumin 3.0 g/dL (3.5-5.2) L 01/09/25 05:46 Globulin 2.1 g/dL (1.3-4.6) 01/09/25 05:46 Lipase 25 U/L (13-60) 01/06/25 07:24 Vitals Last Vital Signs Temp 97.8 F 01/12/25 07:51 Pulse 68 01/12/25 07:51 Resp 14 01/12/25 07:51 BP 184/68 01/12/25 07:51 Pulse Ox 96 01/12/25 07:51 O2 Del Method Room Air 01/12/25 07:51 O2 Flow Rate 2 01/07/25 04:00 Discharge Plan Discharge Patient Disposition: Home Condition: Stable Prescriptions: New polyethylene glycol 3350 [Miralax] 17 gram powder in packet 17 g PO DAILY 30 Days Qty: 30 0RF amoxicillin-pot clavulanate [Augmentin] 500-125 mg tablet 1 tab PO TID 7 Days Qty: 21 0RF Continued losartan 100 mg tablet 100 mg PO DAILY Qty: 90 3RF Eliquis 5 mg tablet 5 mg PO BID@0900,2100 Qty: 60 7RF amlodipine 10 mg tablet 10 mg PO DAILY Qty: 30 11RF clonazepam 1 mg tablet 1 mg PO BID Qty: 60 5RF hydrocodone-acetaminophen 5-325 mg tablet 1 tab PO Q8H PRN (Reason: pain) 14 Days Qty: 30 0RF gabapentin 100 mg capsule See Rx Instructions .ROUTE .COMPLEX Qty: 150 11RF Dose Instruction: take 1 capsule BY MOUTH THREE TIMES DAILY Rx Instructions: Take 1 capsule by mouth in am, 1 capsule at noon, and 3 capsules in PM. atorvastatin 10 mg tablet 10 mg PO QPM Discharge Order = DC NOW: Discharge Order (Routine); Ordered 01/12/25 Ordered By: Lorelei Akbar Referrals: Nikko Garcia MD [Physician, General Surgery] - 2 weeks Referral Note: 2 weeks We have notified your physician's clinic of the need for a follow-up appointment to be scheduled. If you have not heard from them within the next 2 business days, please call them directly. Syed Nesbitt MD [Primary Care Provider, Family Practice] - 1-3 days Referral Note: We have notified your physician's clinic of the need for a follow-up appointment to be scheduled. If you have not heard from them within the next 2 business days, please call them directly. Discharge Diet: GI Soft Discharge Activity: Limit activity as instructed Patient Instructions: Amoxicillin/Clavulanate Potassium (By mouth), Polyethylene Glycol 3350 (By mouth), GI (Gastrointestinal) Soft Diet (DC), Opioid Safety, Patient Portal & Candice Instructions Activity Restrictions/Additional Instructions: General Instructions: Please do not lift anything heavier than 10 pounds, for the next 4 to 6 weeks. You can walk is much as possible, this will help you recover faster. You can shower starting the day after tomorrow, let soap and water run over your wound and then pat dry. Please take your medication as indicated if you are taking opioids please do not forget to take a stool softener Warning signs: Return to the hospital if you have fever, chills, severe abdominal pain that is getting worse over time despite your pain medication, nausea and vomit or if your wounds appear purulent Discharge Attestations Time Spent in Discharge Care*: greater than 30 min Status at Discharge: Cognitive status at discharge: cognitively intact , Behavioral status at discharge: cooperative , Quality Metrics Clinical Quality Measures [ No reported AMI, CVA or VTE this stay] Coding Level of Care Code 57260 Diagnoses Small bowel obstruction K56.609 [place] (acute kidney injury) N17.9 Atrial fibrillation I48.91
[2025-01-12] MEDS: pantoprazole 40 mg SDV IVP (11:36)
[2025-01-12 12:00] VITALS: BP 152/67; PULSE 78; RESP 16; TEMP 36.3; O2SAT 96
[2025-01-12 13:31] VITALS: BP 152/67; PULSE 78; RESP 16; TEMP 36.3; O2SAT 96
== END 2025-01-12 13:34 | disposition home or self-care (01) | DRG 357 ==
LOC: ER 09:27 → MEDSURG 09:54
PROVIDERS: Surgery; Admitting Provider Family Medicine; Emergency Provider Emergency Medicine; PCP Family Medicine; Visit Provider Registered Nurse
PROC: (CPT 49000; principal; 2025-01-08 14:00)
DX: K46.0 Unspecified abdominal hernia with obstruction, without gangrene (principal); N17.9 Acute kidney failure, unspecified; I48.91 Unspecified atrial fibrillation; Z79.01 Long term (current) use of anticoagulants; I10 Essential (primary) hypertension; E78.5 Hyperlipidemia, unspecified; G47.00 Insomnia, unspecified; F32.A Depression, unspecified; F41.9 Anxiety disorder, unspecified; Z90.49 Acquired absence of other specified parts of digestive tract; R01.1 Cardiac murmur, unspecified
CPT/HCPCS: 36415; 51702; 71045; 74018; 74177; 80048; 80053; 83605; 83690; 83735; 84100; 85025; 93306; 96372; 96374; 96375; 99285; A4216; J0131; J0330; J0360; J1650; J1885; J2060; J2270; J2405; J2470; J2543; J2704; J2765; J3010; J3480; J3490; J7030; J9999; P9045; Q9963

== ENCOUNTER → 2025-01-29 12:47 | Outpatient (BNVA) | payer MEDICARE, SELFPAY | PROVIDERS: PCP Family Medicine; Visit Provider Surgery | DX: Z98.890 Other specified postprocedural states (principal) | CPT/HCPCS: 99024 ==

== ENCOUNTER → 2025-02-18 11:28 | Outpatient (BNVA) | payer MEDICARE, SELFPAY | PROVIDERS: PCP Family Medicine; Visit Provider Family Medicine | DX: K56.609 Unspecified intestinal obstruction, unspecified as to partial versus complete obstruction (principal); N17.9 Acute kidney failure, unspecified | CPT/HCPCS: 80053; 85025; 86140 ==